=== PATIENT | female | born 1935 | race African-American/Black ===

== ENCOUNTER 2016-12-27 09:18 | Inpatient (IN) | payer MEDICAID, MEDICARE ==
[2016-12-27] VITALS (40 sets, daily range): BP systolic 85–168; BP diastolic 47–83
[~2016-12-27] VITALS: Ht 162.6 cm; Wt 84.8 kg
[~2016-12-27 09:18] MED LIST: ACET-2178 GT; AMLO10TA80 PO; ATOR10TA69 GT; CLON0.2T PO; DEXT15SY3; DIPH-909 GT; DIXL10 PO; DOXA4TAB3 GT; FOLI-43 PO; FURO20TA4 PO; HYDR100T26 GT; HYDR1AMP IVP; METH2.5T PO; METH4TAB17 GT; METH4TAB17 PO; OMEP20CA10 GT; POTA20TA82 PO
[2016-12-27] MEDS ORDERED: ALBUTEROL (0.083%) 2.5MG/3ML NEB HHN STA (10:10)
[2016-12-27] MEDS ORDERED: METHYLPREDNISOLONE SOD SUCC 125 MG/2 ML VIAL IV STA (10:10)
[2016-12-27] MEDS ORDERED: IPRATROPIUM BROMIDE (0.02%) 0.5MG/2.5ML NEB HHN STA (10:10)
[2016-12-27] MEDS ORDERED: SODIUM CHLORIDE 0.9% 1000ML BAG (SEPSIS BOLUS) IV ONE (10:15)
[2016-12-27] MEDS ORDERED: VANCOMYCIN 1 G PREMIX 200 ML IV ONE (10:15)
[2016-12-27] MEDS ORDERED: PIPERACILLIN/TAZ 3.375G PREMIX 50 ML IV ONE (10:15)
[2016-12-27] MEDS ORDERED: IPRATROPIUM/ALBUTEROL 0.5-3(2.5)MG/3ML NEB ONE (10:28)
[2016-12-27] MEDS ORDERED: SUCCINYLCHOLINE CHLORIDE 200MG/10ML VIAL IV ONE (10:30)
[2016-12-27] MEDS ORDERED: ETOMIDATE 2MG/ML 10ML VIAL IV ONE (10:30)
[2016-12-27 10:31] LABS: HEMATOCRIT. 36.2 % (36.0-48.0); MEAN CORPUSCULAR HEMOGLOBIN 30.8 pg (28.0-32.0); MEAN CORPUSCULAR VOLUME 92.9 fL (81.0-99.0); MEAN PLATELET VOLUME 7.8 fl (7.4-10.4); PLATELET 233 x1000/uL (130-400); RED CELL DISTRIBUTION WIDTH 15.1 % (11.6-14.6)
[2016-12-27 10:37] LABS: BG BASE EXCESS 1.6 mmol/L (-2.0-2.0); BG CARBOXYHEMOGLOBIN 0.4 % (0.5-1.5); BG DEOXYHEMOGLOBIN 8.4 % (0.0-5.0); BG HCO3 ACT 25.6 mmol/L (22.0-26.0); BG METHEMOGLOBIN 0.4 % (0.0-1.5); BG OXYGEN SATURATION 91.5 % (92.0-98.5); BG OXYHEMOGLOBIN 90.8 % (94.0-97.0); BG PCO2 38.1 mmHg (35.0-45.0); BG PH 7.445 (7.350-7.450); BG PO2 58.1 mmHg (75.0-100.0); BG SAMPLE SITE RIGHT RADIAL; BG TOTAL HEMOGLOBIN 12.9 g/dL (12.0-18.0); BG VENT MODE T-TUBE
[2016-12-27 10:39] LABS: INR 1.2; PROTHROMBIN TIME 12.1 sec (9.4-11.6)
[2016-12-27 10:45] LABS: CARBON DIOXIDE 28 mEq/L (21-32); CHLORIDE 99 mEq/L (98-107)
[2016-12-27 10:48] LABS: TROPONIN I < 0.02 ng/mL (0.00-0.04)
[2016-12-27] MEDS ORDERED: ACETAMINOPHEN 325MG TABLET GT ONE (11:00)
[2016-12-27 11:38] LABS: CLARITY URINE TURBID (CLEAR); COLOR URINE YELLOW (YELLOW); GLUCOSE URINE NEGATIVE (NEGATIVE); KETONES URINE NEGATIVE (NEGATIVE); LEUKOCYTE ESTERASE URINE 3+ (NEGATIVE); NITRITE URINE NEGATIVE (NEGATIVE); OCCULT BLOOD URINE 2+ (NEGATIVE); PROTEIN URINE 3+ (NEGATIVE); SPECIFIC GRAVITY URINE 1.016 (1.005-1.030); UROBILINOGEN URINE 0.2 E.U./dL (0.2-1.0)
[2016-12-27 12:58] LABS: PLATELET ESTIMATE NORMAL
[2016-12-27] MEDS ORDERED: DEXT 5%/0.9% NACL KCL 20MEQ/L 1,000 ML IV ONE (13:00)
[2016-12-27 13:31] LABS: BG BASE EXCESS -3.5 mmol/L (-2.0-2.0); BG CARBOXYHEMOGLOBIN 0.1 % (0.5-1.5); BG DEOXYHEMOGLOBIN 4.5 % (0.0-5.0); BG FRACTION INSPIRED OXYGEN 100; BG HCO3 ACT 22.1 mmol/L (22.0-26.0); BG METHEMOGLOBIN 0.4 % (0.0-1.5); BG OXYGEN SATURATION 95.5 % (92.0-98.5); BG PCO2 42.1 mmHg (35.0-45.0); BG PH 7.338 (7.350-7.450); BG PO2 81.6 mmHg (75.0-100.0); BG SAMPLE SITE RIGHT RADIAL; BG TIDAL VOLUME(mL) 550 mL; BG TOTAL HEMOGLOBIN 11.9 g/dL (12.0-18.0); BG VENT MODE VENT - A/C; BG VENT RATE 14 set
[2016-12-27] MEDS ORDERED: NOREPINEPHRINE 4 MG in DEXT 5% WATER 246 ML IV PRN (14:45)
[2016-12-27] MEDS ORDERED: DEXTROSE 50% WATER 50ML SYRINGE IV PRN ×2 (14:45)
[2016-12-27] MEDS ORDERED: ONDANSETRON HCL 4MG/2ML VIAL IV PRN (14:45)
[2016-12-27] MEDS ORDERED: CEFEPIME 1,000 MG in DEXTROSE 5% WATER 50 ML IV SCH (14:45)
[2016-12-27] MEDS: DEXT 5%/0.9% NACL KCL 20MEQ/L 1,000 ML IV SCH (15:04)
[2016-12-27] MEDS: PREDNISONE 20MG TABLET PO SCH (18:42)
[2016-12-27] MEDS: METOCLOPRAMIDE HCL 10MG/2ML VIAL IV SCH (18:42)
[2016-12-27] MEDS: BLOOD SUGAR DIAGNOSTIC STRIP TEST SCH (18:43)
[2016-12-27] MEDS: INSULIN LISPRO 100 UNITS/ML SUBCUT SCH (18:43)
[2016-12-27] MEDS: PIPERACILLIN/TAZ 3.375G PREMIX 50 ML IV SCH (20:58)
[2016-12-27] MEDS: ATORVASTATIN CALCIUM 10MG TABLET GT SCH (21:01)
[2016-12-28] VITALS (79 sets, daily range): BP systolic 99–158; BP diastolic 53–87
[2016-12-28] MEDS: BLOOD SUGAR DIAGNOSTIC STRIP TEST SCH ×4 (00:54→18:21)
[2016-12-28] MEDS: INSULIN LISPRO 100 UNITS/ML SUBCUT SCH ×4 (00:57→18:00)
[2016-12-28] MEDS: METOCLOPRAMIDE HCL 10MG/2ML VIAL IV SCH ×4 (00:57→18:23)
[2016-12-28] MEDS: PIPERACILLIN/TAZ 3.375G PREMIX 50 ML IV SCH ×3 (05:07→20:52)
[2016-12-28 06:05] LABS: HEMATOCRIT. 31.4 % (36.0-48.0); HEMOGLOBIN. 10.3 g/dL (12.0-16.0); MEAN CORPUSCULAR HEMOGLOBIN 30.7 pg (28.0-32.0); MEAN CORPUSCULAR VOLUME 93.3 fL (81.0-99.0); MEAN PLATELET VOLUME 8.8 fl (7.4-10.4); PLATELET 175 x1000/uL (130-400); RED BLOOD CELL COUNT 3.37 mill/uL (4.2-5.4); RED CELL DISTRIBUTION WIDTH 14.6 % (11.6-14.6)
[2016-12-28 07:16] LABS: CHLORIDE 105 mEq/L (98-107)
[2016-12-28 07:30] LABS: CARBON DIOXIDE 24 mEq/L (21-32); PHOSPHORUS 1.5 mg/dL (2.5-4.9)
[2016-12-28 07:58] LABS: BG BASE EXCESS -1.6 mmol/L (-2.0-2.0); BG CARBOXYHEMOGLOBIN 0.3 % (0.5-1.5); BG DEOXYHEMOGLOBIN 1.3 % (0.0-5.0); BG FRACTION INSPIRED OXYGEN 90; BG METHEMOGLOBIN 0.2 % (0.0-1.5); BG OXYGEN SATURATION 98.7 % (92.0-98.5); BG OXYHEMOGLOBIN 98.2 % (94.0-97.0); BG PCO2 28.5 mmHg (35.0-45.0); BG PH 7.485 (7.350-7.450); BG PO2 142.3 mmHg (75.0-100.0); BG SAMPLE SITE RIGHT RADIAL; BG TIDAL VOLUME(mL) 550 mL; BG TOTAL HEMOGLOBIN 10.6 g/dL (12.0-18.0); BG VENT MODE VENT - A/C; BG VENT RATE 16 set
[2016-12-28] MEDS: PREDNISONE 20MG TABLET PO SCH (08:33)
[2016-12-28] MEDS: PANTOPRAZOLE SODIUM 40 MG/VIAL IV SCH (08:33)
[2016-12-28] MEDS: DEXT 5%/0.9% NACL KCL 20MEQ/L 1,000 ML IV SCH (08:33)
[2016-12-28] MEDS: FOLIC ACID 1MG TABLET PO SCH (08:33)
[2016-12-28] MEDS: ENOXAPARIN 40MG/0.4ML SYR SUBCUT SCH (08:34)
[2016-12-28] MEDS ORDERED: POTASSIUM PHOS,M-BASIC-D-BASIC 30 MMOL in SODIUM CHLORIDE 0.9% 500 ML IV SCH (11:00)
[2016-12-28] MEDS ORDERED: VANCOMYCIN 500 MG PREMIX 100 ML IV SCH (12:30)
[2016-12-28] MEDS: VANCOMYCIN 750 MG PREMIX 150 ML IV SCH (13:28)
[2016-12-28 16:12] LABS: PLATELET ESTIMATE NORMAL
[2016-12-28] MEDS: IPRATROPIUM/ALBUTEROL 0.5-3(2.5)MG/3ML NEB HHN SCH ×3 (16:19→23:36)
[2016-12-28] MEDS: ATORVASTATIN CALCIUM 10MG TABLET GT SCH (21:52)
[2016-12-29] VITALS (43 sets, daily range): BP systolic 122–177; BP diastolic 58–86
[2016-12-29] MEDS: METOCLOPRAMIDE HCL 10MG/2ML VIAL IV SCH ×5 (00:53→23:33)
[2016-12-29] MEDS: BLOOD SUGAR DIAGNOSTIC STRIP TEST SCH ×5 (00:55→23:34)
[2016-12-29] MEDS: DEXT 5%/0.9% NACL KCL 20MEQ/L 1,000 ML IV SCH (01:37)
[2016-12-29] MEDS: IPRATROPIUM/ALBUTEROL 0.5-3(2.5)MG/3ML NEB HHN SCH ×2 (03:05→20:01)
[2016-12-29] MEDS: PIPERACILLIN/TAZ 3.375G PREMIX 50 ML IV SCH ×4 (04:58→23:33)
[2016-12-29] MEDS: INSULIN LISPRO 100 UNITS/ML SUBCUT SCH ×5 (05:41→23:34)
[2016-12-29 06:56] LABS: CARBON DIOXIDE 22 mEq/L (21-32); CHLORIDE 112 mEq/L (98-107); PHOSPHORUS 2.1 mg/dL (2.5-4.9)
[2016-12-29 07:35] LABS: HEMATOCRIT. 30.1 % (36.0-48.0); MEAN CORPUSCULAR VOLUME 93.6 fL (81.0-99.0); MEAN PLATELET VOLUME 9.1 fl (7.4-10.4); PLATELET 152 x1000/uL (130-400); RED BLOOD CELL COUNT 3.21 mill/uL (4.2-5.4)
[2016-12-29 07:43] LABS: BG BASE EXCESS -0.7 mmol/L (-2.0-2.0); BG CARBOXYHEMOGLOBIN 0.3 % (0.5-1.5); BG DEOXYHEMOGLOBIN 2.3 % (0.0-5.0); BG HCO3 ACT 22.9 mmol/L (22.0-26.0); BG METHEMOGLOBIN 0.3 % (0.0-1.5); BG OXYGEN SATURATION 97.7 % (92.0-98.5); BG OXYHEMOGLOBIN 97.1 % (94.0-97.0); BG PCO2 34.2 mmHg (35.0-45.0); BG PH 7.444 (7.350-7.450); BG PO2 101.1 mmHg (75.0-100.0); BG SAMPLE SITE RIGHT RADIAL; BG TIDAL VOLUME(mL) 550 mL; BG TOTAL HEMOGLOBIN 10.8 g/dL (12.0-18.0); BG VENT MODE VENT - A/C; BG VENT RATE 16 set
[2016-12-29] MEDS ORDERED: PREDNISONE 20MG TABLET PO SCH (09:00)
[2016-12-29] MEDS: PANTOPRAZOLE SODIUM 40 MG/VIAL IV SCH (09:47)
[2016-12-29] MEDS: FOLIC ACID 1MG TABLET PO SCH (09:48)
[2016-12-29] MEDS: VANCOMYCIN 750 MG PREMIX 150 ML IV SCH (09:49)
[2016-12-29] MEDS: ENOXAPARIN 40MG/0.4ML SYR SUBCUT SCH (09:49)
[2016-12-29] MEDS ORDERED: POTASSIUM PHOS,M-BASIC-D-BASIC 15 MMOL in DEXT 5% WATER 245 ML IV NR (11:30)
[2016-12-29 12:17] LABS: PLATELET ESTIMATE NORMAL
[2016-12-29] MEDS: ATORVASTATIN CALCIUM 10MG TABLET GT SCH (20:46)
[2016-12-29] MEDS ORDERED: AMLODIPINE 10MG TABLET GT NR (23:30)
[2016-12-30] VITALS (30 sets, daily range): BP systolic 110–171; BP diastolic 58–89
[2016-12-30] MEDS: IPRATROPIUM/ALBUTEROL 0.5-3(2.5)MG/3ML NEB HHN SCH ×6 (00:29→20:42)
[2016-12-30 05:45] LABS: BASOPHILS % 0.4 % (0.0-2.0); EOSINOPHILS % 0.1 % (0.0-5.0); HEMATOCRIT. 33.2 % (36.0-48.0); LYMPHOCYTES % 12.1 % (20.0-50.0); MEAN CORPUSCULAR HEMOGLOBIN 30.6 pg (28.0-32.0); MEAN CORPUSCULAR VOLUME 92.1 fL (81.0-99.0); MEAN PLATELET VOLUME 8.7 fl (7.4-10.4); MONOCYTES % 3.9 % (2.0-8.0); NEUTROPHILS % 83.5 % (40.0-76.0); PLATELET 158 x1000/uL (130-400); RED BLOOD CELL COUNT 3.61 mill/uL (4.2-5.4); RED CELL DISTRIBUTION WIDTH 15.2 % (11.6-14.6)
[2016-12-30] MEDS: INSULIN LISPRO 100 UNITS/ML SUBCUT SCH ×3 (06:00→17:19)
[2016-12-30] MEDS: METOCLOPRAMIDE HCL 10MG/2ML VIAL IV SCH ×3 (06:01→17:18)
[2016-12-30] MEDS: BLOOD SUGAR DIAGNOSTIC STRIP TEST SCH ×3 (06:01→17:19)
[2016-12-30] MEDS: PIPERACILLIN/TAZ 3.375G PREMIX 50 ML IV SCH ×3 (06:01→17:18)
[2016-12-30] MEDS: CLONIDINE 0.1MG TABLET GT PRN (06:17)
[2016-12-30 06:43] LABS: CARBON DIOXIDE 21 mEq/L (21-32); CHLORIDE 108 mEq/L (98-107); PHOSPHORUS 2.1 mg/dL (2.5-4.9)
[2016-12-30] MEDS: PREDNISONE 10MG TABLET PO SCH (08:52)
[2016-12-30] MEDS: FOLIC ACID 1MG TABLET PO SCH (08:52)
[2016-12-30] MEDS: AMLODIPINE 10MG TABLET GT SCH (08:52)
[2016-12-30] MEDS: PANTOPRAZOLE SODIUM 40 MG/VIAL IV SCH (08:52)
[2016-12-30] MEDS: ENOXAPARIN 40MG/0.4ML SYR SUBCUT SCH (08:53)
[2016-12-30 09:10] LABS: BG BASE EXCESS -0.2 mmol/L (-2.0-2.0); BG CARBOXYHEMOGLOBIN 0.3 % (0.5-1.5); BG DEOXYHEMOGLOBIN 4.3 % (0.0-5.0); BG FRACTION INSPIRED OXYGEN 40; BG HCO3 ACT 23.3 mmol/L (22.0-26.0); BG METHEMOGLOBIN 0.1 % (0.0-1.5); BG OXYGEN SATURATION 95.7 % (92.0-98.5); BG OXYHEMOGLOBIN 95.3 % (94.0-97.0); BG PCO2 33.9 mmHg (35.0-45.0); BG PH 7.455 (7.350-7.450); BG PO2 79.2 mmHg (75.0-100.0); BG SAMPLE SITE RIGHT RADIAL; BG TIDAL VOLUME(mL) 550 mL; BG TOTAL HEMOGLOBIN 10.3 g/dL (12.0-18.0); BG VENT MODE VENT - A/C; BG VENT RATE 12 set
[2016-12-30] MEDS ORDERED: POTASSIUM PHOS,M-BASIC-D-BASIC 10 MMOL in DEXT 5% WATER 246.6667 ML IV NR (13:00)
[2016-12-30] MEDS: ACETAMINOPHEN 650MG/20.3ML UDC GT PRN (17:18)
[2016-12-30] MEDS: ATORVASTATIN CALCIUM 10MG TABLET GT SCH (20:56)
[2016-12-31] VITALS (12 sets, daily range): BP systolic 128–179; BP diastolic 59–83
[2016-12-31] MEDS: CLONIDINE 0.1MG TABLET GT PRN ×2 (00:23→06:21)
[2016-12-31] MEDS: BLOOD SUGAR DIAGNOSTIC STRIP TEST SCH ×4 (00:24→18:00)
[2016-12-31] MEDS: METOCLOPRAMIDE HCL 10MG/2ML VIAL IV SCH ×4 (00:24→18:30)
[2016-12-31] MEDS: INSULIN LISPRO 100 UNITS/ML SUBCUT SCH ×4 (00:24→18:31)
[2016-12-31] MEDS: PIPERACILLIN/TAZ 3.375G PREMIX 50 ML IV SCH ×4 (00:24→18:29)
[2016-12-31] MEDS: IPRATROPIUM/ALBUTEROL 0.5-3(2.5)MG/3ML NEB HHN SCH ×6 (00:28→20:14)
[2016-12-31 06:48] LABS: BASOPHILS % 0.1 % (0.0-2.0); HEMATOCRIT. 28.7 % (36.0-48.0); HEMOGLOBIN. 9.5 g/dL (12.0-16.0); LYMPHOCYTES % 10.3 % (20.0-50.0); MEAN CORPUSCULAR HEMOGLOBIN 30.4 pg (28.0-32.0); MEAN CORPUSCULAR VOLUME 91.7 fL (81.0-99.0); MEAN PLATELET VOLUME 8.7 fl (7.4-10.4); MONOCYTES % 6.3 % (2.0-8.0); NEUTROPHILS % 82.3 % (40.0-76.0); PLATELET 150 x1000/uL (130-400); RED BLOOD CELL COUNT 3.13 mill/uL (4.2-5.4); RED CELL DISTRIBUTION WIDTH 15.2 % (11.6-14.6)
[2016-12-31 07:20] LABS: CARBON DIOXIDE 24 mEq/L (21-32); CHLORIDE 105 mEq/L (98-107)
[2016-12-31 07:22] LABS: PHOSPHORUS 1.9 mg/dL (2.5-4.9)
[2016-12-31] MEDS: ACETAMINOPHEN 650MG/20.3ML UDC GT PRN (07:52)
[2016-12-31] MEDS: PANTOPRAZOLE SODIUM 40 MG/VIAL IV SCH (09:10)
[2016-12-31] MEDS: FOLIC ACID 1MG TABLET PO SCH (09:10)
[2016-12-31] MEDS: PREDNISONE 10MG TABLET PO SCH (09:10)
[2016-12-31] MEDS: AMLODIPINE 10MG TABLET GT SCH (09:11)
[2016-12-31] MEDS: ENOXAPARIN 40MG/0.4ML SYR SUBCUT SCH (09:11)
[2016-12-31 12:44] LABS: BG BASE EXCESS 1.1 mmol/L (-2.0-2.0); BG CARBOXYHEMOGLOBIN 0.3 % (0.5-1.5); BG DEOXYHEMOGLOBIN 5.7 % (0.0-5.0); BG FRACTION INSPIRED OXYGEN 45; BG HCO3 ACT 24.3 mmol/L (22.0-26.0); BG METHEMOGLOBIN 0.2 % (0.0-1.5); BG OXYGEN SATURATION 94.3 % (92.0-98.5); BG OXYHEMOGLOBIN 93.8 % (94.0-97.0); BG PCO2 33.8 mmHg (35.0-45.0); BG PH 7.475 (7.350-7.450); BG PO2 68.1 mmHg (75.0-100.0); BG SAMPLE SITE RIGHT RADIAL; BG TIDAL VOLUME(mL) 550 mL; BG TOTAL HEMOGLOBIN 10.8 g/dL (12.0-18.0); BG VENT MODE VENT - A/C; BG VENT RATE 12 set
[2016-12-31] MEDS ORDERED: MAGNESIUM 2 G PREMIX 50 ML IV NR (13:00)
[2016-12-31] MEDS ORDERED: POTASSIUM PHOS,M-BASIC-D-BASIC 15 MMOL in DEXT 5% WATER 245 ML IV NR (15:00)
[2016-12-31] MEDS: ATORVASTATIN CALCIUM 20MG TABLET GT SCH (20:34)
[2017-01-01] VITALS (17 sets, daily range): BP systolic 134–176; BP diastolic 56–99
[2017-01-01] MEDS: IPRATROPIUM/ALBUTEROL 0.5-3(2.5)MG/3ML NEB HHN SCH ×6 (00:17→20:42)
[2017-01-01] MEDS: PIPERACILLIN/TAZ 3.375G PREMIX 50 ML IV SCH ×3 (00:23→13:28)
[2017-01-01] MEDS: METOCLOPRAMIDE HCL 10MG/2ML VIAL IV SCH ×5 (00:26→23:44)
[2017-01-01] MEDS: BLOOD SUGAR DIAGNOSTIC STRIP TEST SCH ×5 (00:26→23:53)
[2017-01-01] MEDS: CLONIDINE 0.1MG TABLET GT PRN (02:36)
[2017-01-01] MEDS: ACETAMINOPHEN 650MG/20.3ML UDC GT PRN (04:52)
[2017-01-01 05:20] LABS: BASOPHILS % 0.2 % (0.0-2.0); EOSINOPHILS % 2.9 % (0.0-5.0); HEMOGLOBIN. 9.3 g/dL (12.0-16.0); MEAN CORPUSCULAR HEMOGLOBIN 30.5 pg (28.0-32.0); MEAN CORPUSCULAR VOLUME 91.7 fL (81.0-99.0); MEAN PLATELET VOLUME 8.7 fl (7.4-10.4); NEUTROPHILS % 75.9 % (40.0-76.0); PLATELET 167 x1000/uL (130-400); RED BLOOD CELL COUNT 3.05 mill/uL (4.2-5.4); RED CELL DISTRIBUTION WIDTH 14.8 % (11.6-14.6)
[2017-01-01] MEDS: INSULIN LISPRO 100 UNITS/ML SUBCUT SCH ×5 (06:00→23:57)
[2017-01-01 06:57] LABS: PHOSPHORUS 2.8 mg/dL (2.5-4.9)
[2017-01-01] MEDS: ENOXAPARIN 40MG/0.4ML SYR SUBCUT SCH (08:36)
[2017-01-01] MEDS: PANTOPRAZOLE SODIUM 40 MG/VIAL IV SCH (08:36)
[2017-01-01] MEDS: AMLODIPINE 10MG TABLET GT SCH (08:37)
[2017-01-01] MEDS: PREDNISONE 10MG TABLET PO SCH (08:38)
[2017-01-01] MEDS: FOLIC ACID 1MG TABLET PO SCH (08:46)
[2017-01-01] MEDS ORDERED: POTASSIUM CHLORIDE 20MEQ/PACKET PO NR (09:00)
[2017-01-01 11:46] LABS: BG BASE EXCESS 1.8 mmol/L (-2.0-2.0); BG CARBOXYHEMOGLOBIN 0.3 % (0.5-1.5); BG DEOXYHEMOGLOBIN 5.9 % (0.0-5.0); BG FRACTION INSPIRED OXYGEN 45; BG HCO3 ACT 25.1 mmol/L (22.0-26.0); BG METHEMOGLOBIN 0.2 % (0.0-1.5); BG OXYGEN SATURATION 94.1 % (92.0-98.5); BG OXYHEMOGLOBIN 93.6 % (94.0-97.0); BG PCO2 34.1 mmHg (35.0-45.0); BG PH 7.484 (7.350-7.450); BG SAMPLE SITE RIGHT RADIAL; BG TIDAL VOLUME(mL) 550 mL; BG TOTAL HEMOGLOBIN 9.7 g/dL (12.0-18.0); BG VENT MODE VENT - A/C; BG VENT RATE 12 set
[2017-01-01] MEDS: OMEPRAZOLE 20MG CAPSULE EXTENDED RELEASE PO SCH (13:39)
[2017-01-01] MEDS: AMOXICILLIN 500 MG CAPSULE GT SCH (18:07)
[2017-01-01] MEDS: ATORVASTATIN CALCIUM 20MG TABLET GT SCH (20:43)
[2017-01-02] VITALS (17 sets, daily range): BP systolic 134–187; BP diastolic 47–88
[2017-01-02] MEDS: IPRATROPIUM/ALBUTEROL 0.5-3(2.5)MG/3ML NEB HHN SCH ×6 (00:31→20:34)
[2017-01-02] MEDS: AMOXICILLIN 500 MG CAPSULE GT SCH ×2 (01:00→07:28)
[2017-01-02] MEDS: ACETAMINOPHEN 650MG/20.3ML UDC GT PRN (01:01)
[2017-01-02] MEDS: CLONIDINE 0.1MG TABLET GT PRN (02:31)
[2017-01-02] MEDS: BLOOD SUGAR DIAGNOSTIC STRIP TEST SCH ×3 (05:46→17:51)
[2017-01-02] MEDS: METOCLOPRAMIDE HCL 10MG/2ML VIAL IV SCH ×3 (05:46→17:47)
[2017-01-02] MEDS: INSULIN LISPRO 100 UNITS/ML SUBCUT SCH ×3 (05:52→17:50)
[2017-01-02 06:19] LABS: BASOPHILS % 0.3 % (0.0-2.0); HEMATOCRIT. 28.4 % (36.0-48.0); HEMOGLOBIN. 9.4 g/dL (12.0-16.0); LYMPHOCYTES % 19.1 % (20.0-50.0); MEAN CORPUSCULAR HEMOGLOBIN 30.7 pg (28.0-32.0); MEAN CORPUSCULAR VOLUME 92.5 fL (81.0-99.0); MEAN PLATELET VOLUME 8.8 fl (7.4-10.4); MONOCYTES % 5.7 % (2.0-8.0); NEUTROPHILS % 70.9 % (40.0-76.0); PLATELET 194 x1000/uL (130-400); RED BLOOD CELL COUNT 3.06 mill/uL (4.2-5.4); RED CELL DISTRIBUTION WIDTH 14.9 % (11.6-14.6)
[2017-01-02] MEDS: OMEPRAZOLE 20MG CAPSULE EXTENDED RELEASE PO SCH (06:38)
[2017-01-02 07:08] LABS: CARBON DIOXIDE 24 mEq/L (21-32); CHLORIDE 106 mEq/L (98-107)
[2017-01-02] MEDS: FOLIC ACID 1MG TABLET PO SCH (08:31)
[2017-01-02] MEDS: ENOXAPARIN 40MG/0.4ML SYR SUBCUT SCH (08:31)
[2017-01-02] MEDS: AMLODIPINE 10MG TABLET GT SCH (08:32)
[2017-01-02] MEDS: PREDNISONE 10MG TABLET PO SCH (08:32)
[2017-01-02] MEDS: CEFTRIAXONE 1 G PREMIX 50 ML IV SCH (11:54)
[2017-01-02] MEDS: ATORVASTATIN CALCIUM 20MG TABLET GT SCH (21:02)
[2017-01-03] VITALS (12 sets, daily range): BP systolic 122–170; BP diastolic 56–75
[2017-01-03] MEDS: METOCLOPRAMIDE HCL 10MG/2ML VIAL IV SCH ×2 (00:14→05:45)
[2017-01-03] MEDS: IPRATROPIUM/ALBUTEROL 0.5-3(2.5)MG/3ML NEB HHN SCH ×6 (00:15→20:57)
[2017-01-03] MEDS: CLONIDINE 0.1MG TABLET GT PRN (00:30)
[2017-01-03] MEDS: BLOOD SUGAR DIAGNOSTIC STRIP TEST SCH ×4 (05:53→17:24)
[2017-01-03] MEDS: INSULIN LISPRO 100 UNITS/ML SUBCUT SCH ×4 (05:53→18:06)
[2017-01-03 07:00] LABS: BASOPHILS % 0.3 % (0.0-2.0); EOSINOPHILS % 3.7 % (0.0-5.0); HEMATOCRIT. 31.1 % (36.0-48.0); HEMOGLOBIN. 10.2 g/dL (12.0-16.0); LYMPHOCYTES % 18.6 % (20.0-50.0); MEAN CORPUSCULAR HEMOGLOBIN 30.7 pg (28.0-32.0); MEAN CORPUSCULAR VOLUME 93.5 fL (81.0-99.0); MEAN PLATELET VOLUME 8.9 fl (7.4-10.4); MONOCYTES % 5.3 % (2.0-8.0); NEUTROPHILS % 72.1 % (40.0-76.0); PLATELET 222 x1000/uL (130-400); RED BLOOD CELL COUNT 3.33 mill/uL (4.2-5.4); RED CELL DISTRIBUTION WIDTH 14.7 % (11.6-14.6)
[2017-01-03 08:18] LABS: CARBON DIOXIDE 24 mEq/L (21-32); CHLORIDE 104 mEq/L (98-107)
[2017-01-03] MEDS: FAMOTIDINE 20MG TABLET PO SCH (08:48)
[2017-01-03] MEDS: AMLODIPINE 10MG TABLET GT SCH (08:49)
[2017-01-03] MEDS: FOLIC ACID 1MG TABLET PO SCH (08:49)
[2017-01-03] MEDS: ENOXAPARIN 40MG/0.4ML SYR SUBCUT SCH (08:49)
[2017-01-03] MEDS: PREDNISONE 10MG TABLET PO SCH (08:49)
[2017-01-03] MEDS: CEFTRIAXONE 1 G PREMIX 50 ML IV SCH (09:50)
[2017-01-03] MEDS ORDERED: MAGNESIUM 2 G PREMIX 50 ML IV SCH (10:00)
[2017-01-03] MEDS ORDERED: VANCOMYCIN 1500MG in DEXTROSE 5% WATER 250ML IV SCH (16:00)
[2017-01-03] MEDS: CEFEPIME 1,000 MG in DEXTROSE 5% WATER 50 ML IV SCH (17:28)
[2017-01-03] MEDS: ATORVASTATIN CALCIUM 20MG TABLET GT SCH (21:02)
[2017-01-04] VITALS (14 sets, daily range): BP systolic 136–170; BP diastolic 60–85
[2017-01-04] MEDS: BLOOD SUGAR DIAGNOSTIC STRIP TEST SCH ×5 (00:05→23:55)
[2017-01-04] MEDS: CEFEPIME 1,000 MG in DEXTROSE 5% WATER 50 ML IV SCH ×2 (03:46→15:15)
[2017-01-04] MEDS: IPRATROPIUM/ALBUTEROL 0.5-3(2.5)MG/3ML NEB HHN SCH ×6 (04:42→23:57)
[2017-01-04] MEDS: INSULIN LISPRO 100 UNITS/ML SUBCUT SCH ×5 (05:49→23:55)
[2017-01-04 06:53] LABS: BASOPHILS % 0.2 % (0.0-2.0); EOSINOPHILS % 2.8 % (0.0-5.0); LYMPHOCYTES % 12.1 % (20.0-50.0); MEAN CORPUSCULAR HEMOGLOBIN 30.3 pg (28.0-32.0); MEAN CORPUSCULAR VOLUME 91.1 fL (81.0-99.0); MEAN PLATELET VOLUME 8.6 fl (7.4-10.4); MONOCYTES % 4.1 % (2.0-8.0); NEUTROPHILS % 80.8 % (40.0-76.0); PLATELET 255 x1000/uL (130-400); RED BLOOD CELL COUNT 3.29 mill/uL (4.2-5.4); RED CELL DISTRIBUTION WIDTH 14.7 % (11.6-14.6)
[2017-01-04 07:43] LABS: CARBON DIOXIDE 25 mEq/L (21-32); CHLORIDE 102 mEq/L (98-107)
[2017-01-04 07:45] LABS: CLARITY URINE CLEAR (CLEAR); COLOR URINE YELLOW (YELLOW); GLUCOSE URINE NEGATIVE (NEGATIVE); KETONES URINE NEGATIVE (NEGATIVE); LEUKOCYTE ESTERASE URINE NEGATIVE (NEGATIVE); NITRITE URINE NEGATIVE (NEGATIVE); OCCULT BLOOD URINE 1+ (NEGATIVE); PROTEIN URINE 2+ (NEGATIVE); SPECIFIC GRAVITY URINE 1.018 (1.005-1.030); UROBILINOGEN URINE 0.2 E.U./dL (0.2-1.0)
[2017-01-04 07:52] LABS: CREATINE KINASE 19 IU/L (26-192); PHOSPHORUS 3.1 mg/dL (2.5-4.9)
[2017-01-04] MEDS: FAMOTIDINE 20MG TABLET PO SCH (08:47)
[2017-01-04] MEDS: AMLODIPINE 10MG TABLET GT SCH (08:47)
[2017-01-04] MEDS: FOLIC ACID 1MG TABLET PO SCH (08:47)
[2017-01-04] MEDS: PREDNISONE 10MG TABLET PO SCH (08:47)
[2017-01-04] MEDS: ENOXAPARIN 40MG/0.4ML SYR SUBCUT SCH (08:48)
[2017-01-04] MEDS: VANCOMYCIN 1 G PREMIX 200 ML IV SCH (08:48)
[2017-01-04] MEDS: NYSTATIN POWDER 15GM TOP SCH (15:15)
[2017-01-04] MEDS ORDERED: GUAIFENESIN 200MG/10ML SUGAR FREE UDC PO PRN (15:15)
[2017-01-04] MEDS: ATORVASTATIN CALCIUM 20MG TABLET GT SCH (20:50)
[2017-01-05] VITALS (12 sets, daily range): BP systolic 124–178; BP diastolic 55–98
[2017-01-05] MEDS: CEFEPIME 1,000 MG in DEXTROSE 5% WATER 50 ML IV SCH ×2 (02:10→15:01)
[2017-01-05] MEDS: VANCOMYCIN 1 G PREMIX 200 ML IV SCH ×2 (02:43→21:04)
[2017-01-05] MEDS: IPRATROPIUM/ALBUTEROL 0.5-3(2.5)MG/3ML NEB HHN SCH ×5 (03:56→20:18)
[2017-01-05] MEDS: BLOOD SUGAR DIAGNOSTIC STRIP TEST SCH ×4 (05:21→23:47)
[2017-01-05] MEDS: INSULIN LISPRO 100 UNITS/ML SUBCUT SCH ×4 (05:21→23:47)
[2017-01-05 06:37] LABS: BASOPHILS % 0.2 % (0.0-2.0); EOSINOPHILS % 2.5 % (0.0-5.0); HEMATOCRIT. 30.3 % (36.0-48.0); LYMPHOCYTES % 14.7 % (20.0-50.0); MEAN CORPUSCULAR HEMOGLOBIN 30.2 pg (28.0-32.0); MEAN CORPUSCULAR VOLUME 91.7 fL (81.0-99.0); MEAN PLATELET VOLUME 8.4 fl (7.4-10.4); MONOCYTES % 4.5 % (2.0-8.0); NEUTROPHILS % 78.1 % (40.0-76.0); PLATELET 251 x1000/uL (130-400); RED CELL DISTRIBUTION WIDTH 14.6 % (11.6-14.6)
[2017-01-05 07:22] LABS: CARBON DIOXIDE 29 mEq/L (21-32); CHLORIDE 101 mEq/L (98-107); PHOSPHORUS 3.3 mg/dL (2.5-4.9)
[2017-01-05] MEDS: AMLODIPINE 10MG TABLET GT SCH (10:02)
[2017-01-05] MEDS: FAMOTIDINE 20MG TABLET PO SCH (10:02)
[2017-01-05] MEDS: FOLIC ACID 1MG TABLET PO SCH (10:02)
[2017-01-05] MEDS: ENOXAPARIN 40MG/0.4ML SYR SUBCUT SCH (10:02)
[2017-01-05] MEDS: ACETAMINOPHEN 650MG/20.3ML UDC GT PRN (10:03)
[2017-01-05] MEDS: PREDNISONE 10MG TABLET PO SCH (10:03)
[2017-01-05] MEDS: NYSTATIN POWDER 15GM TOP SCH (10:04)
[2017-01-05] MEDS: CLONIDINE 0.1MG TABLET GT PRN (11:50)
[2017-01-05] MEDS: HYDRALAZINE HCL 25MG TABLET GT SCH ×2 (13:43→21:03)
[2017-01-05] MEDS: ATORVASTATIN CALCIUM 20MG TABLET GT SCH (21:03)
[2017-01-06] VITALS (12 sets, daily range): BP systolic 121–157; BP diastolic 60–90
[2017-01-06] MEDS: IPRATROPIUM/ALBUTEROL 0.5-3(2.5)MG/3ML NEB HHN SCH ×6 (00:30→20:51)
[2017-01-06] MEDS: CEFEPIME 1,000 MG in DEXTROSE 5% WATER 50 ML IV SCH ×2 (03:53→15:56)
[2017-01-06] MEDS: BLOOD SUGAR DIAGNOSTIC STRIP TEST SCH ×3 (05:39→18:32)
[2017-01-06] MEDS: INSULIN LISPRO 100 UNITS/ML SUBCUT SCH ×3 (05:39→18:00)
[2017-01-06] MEDS: HYDRALAZINE HCL 25MG TABLET GT SCH ×3 (05:42→21:59)
[2017-01-06 08:27] LABS: CARBON DIOXIDE 27 mEq/L (21-32); CHLORIDE 101 mEq/L (98-107)
[2017-01-06] MEDS: NYSTATIN POWDER 15GM TOP SCH (09:00)
[2017-01-06] MEDS ORDERED: DIPHENHYDRAMINE 50MG CAPSULE GT PRN (10:00)
[2017-01-06] MEDS: PREDNISONE 10MG TABLET PO SCH (10:10)
[2017-01-06] MEDS: AMLODIPINE 10MG TABLET GT SCH (10:11)
[2017-01-06] MEDS: ACETAMINOPHEN 650MG/20.3ML UDC GT PRN (10:12)
[2017-01-06] MEDS: FOLIC ACID 1MG TABLET PO SCH (10:12)
[2017-01-06] MEDS: ENOXAPARIN 40MG/0.4ML SYR SUBCUT SCH (10:12)
[2017-01-06] MEDS: FAMOTIDINE 20MG TABLET PO SCH (10:12)
[2017-01-06] MEDS: ATORVASTATIN CALCIUM 20MG TABLET GT SCH (21:59)
[2017-01-07] VITALS (11 sets, daily range): BP systolic 128–163; BP diastolic 55–82
[2017-01-07] MEDS: CLONIDINE 0.1MG TABLET GT PRN (00:43)
[2017-01-07] MEDS: BLOOD SUGAR DIAGNOSTIC STRIP TEST SCH ×4 (00:48→17:27)
[2017-01-07] MEDS: IPRATROPIUM/ALBUTEROL 0.5-3(2.5)MG/3ML NEB HHN SCH ×6 (00:54→21:22)
[2017-01-07] MEDS: CEFEPIME 1,000 MG in DEXTROSE 5% WATER 50 ML IV SCH ×2 (03:19→14:24)
[2017-01-07] MEDS: INSULIN LISPRO 100 UNITS/ML SUBCUT SCH ×4 (06:00→17:27)
[2017-01-07] MEDS ORDERED: VANCOMYCIN 750 MG PREMIX 150 ML IV SCH (06:00)
[2017-01-07] MEDS: HYDRALAZINE HCL 25MG TABLET GT SCH ×3 (06:11→21:30)
[2017-01-07 07:37] LABS: BG BASE EXCESS 4.3 mmol/L (-2.0-2.0); BG CARBOXYHEMOGLOBIN 0.3 % (0.5-1.5); BG DEOXYHEMOGLOBIN 6.2 % (0.0-5.0); BG FRACTION INSPIRED OXYGEN 45; BG HCO3 ACT 29.1 mmol/L (22.0-26.0); BG METHEMOGLOBIN 0.3 % (0.0-1.5); BG OXYGEN SATURATION 93.8 % (92.0-98.5); BG OXYHEMOGLOBIN 93.2 % (94.0-97.0); BG PCO2 44.2 mmHg (35.0-45.0); BG PH 7.436 (7.350-7.450); BG PO2 68.9 mmHg (75.0-100.0); BG SAMPLE SITE RIGHT RADIAL; BG TIDAL VOLUME(mL) 550 mL; BG TOTAL HEMOGLOBIN 10.4 g/dL (12.0-18.0); BG VENT MODE VENT - SIMV; BG VENT RATE 6 set
[2017-01-07 08:34] LABS: BG PRESSURE SUPPORT 8
[2017-01-07] MEDS: FOLIC ACID 1MG TABLET PO SCH (08:57)
[2017-01-07] MEDS: AMLODIPINE 10MG TABLET GT SCH (08:58)
[2017-01-07] MEDS: FAMOTIDINE 20MG TABLET PO SCH (08:58)
[2017-01-07] MEDS: PREDNISONE 10MG TABLET PO SCH (08:58)
[2017-01-07] MEDS: ENOXAPARIN 40MG/0.4ML SYR SUBCUT SCH (08:59)
[2017-01-07] MEDS: NYSTATIN POWDER 15GM TOP SCH (09:47)
[2017-01-07] MEDS: ATORVASTATIN CALCIUM 20MG TABLET GT SCH (21:29)
[2017-01-08] VITALS (7 sets, daily range): BP systolic 111–153; BP diastolic 46–82
[2017-01-08] MEDS: IPRATROPIUM/ALBUTEROL 0.5-3(2.5)MG/3ML NEB HHN SCH ×4 (00:55→11:56)
[2017-01-08] MEDS: CEFEPIME 1,000 MG in DEXTROSE 5% WATER 50 ML IV SCH (02:50)
[2017-01-08] MEDS: INSULIN LISPRO 100 UNITS/ML SUBCUT SCH ×3 (06:00→13:03)
[2017-01-08 06:44] LABS: BASOPHILS % 0.5 % (0.0-2.0); EOSINOPHILS % 3.4 % (0.0-5.0); HEMOGLOBIN. 10.4 g/dL (12.0-16.0); LYMPHOCYTES % 20.5 % (20.0-50.0); MEAN CORPUSCULAR HEMOGLOBIN 30.7 pg (28.0-32.0); MEAN CORPUSCULAR VOLUME 91.3 fL (81.0-99.0); MEAN PLATELET VOLUME 8.4 fl (7.4-10.4); MONOCYTES % 8.5 % (2.0-8.0); NEUTROPHILS % 67.1 % (40.0-76.0); PLATELET 341 x1000/uL (130-400); RED BLOOD CELL COUNT 3.39 mill/uL (4.2-5.4); RED CELL DISTRIBUTION WIDTH 14.2 % (11.6-14.6)
[2017-01-08] MEDS: BLOOD SUGAR DIAGNOSTIC STRIP TEST SCH ×3 (06:55→12:22)
[2017-01-08] MEDS: HYDRALAZINE HCL 25MG TABLET GT SCH ×2 (07:12→13:57)
[2017-01-08 07:31] LABS: CARBON DIOXIDE 30 mEq/L (21-32); CHLORIDE 104 mEq/L (98-107)
[2017-01-08] MEDS ORDERED: FOLIC ACID 1MG TABLET GT SCH (09:00)
[2017-01-08] MEDS ORDERED: FAMOTIDINE 20MG TABLET GT SCH (09:00)
[2017-01-08] MEDS ORDERED: PREDNISONE 10MG TABLET GT SCH (09:00)
[2017-01-08] MEDS: ENOXAPARIN 40MG/0.4ML SYR SUBCUT SCH (09:20)
[2017-01-08] MEDS: AMLODIPINE 10MG TABLET GT SCH (09:20)
[2017-01-08] MEDS: NYSTATIN POWDER 15GM TOP SCH (09:21)
== END 2017-01-08 14:25 | DRG 870 ==
LOC: ER 09:20 → MICUSO 11:37 → EDBEDREQ 11:40 → ENRESERV 11:50 → 5EST 12-30 22:25
PROVIDERS: ADMIT Internal Medicine; ATTEND Internal Medicine
PROC: 5A1955Z Respiratory Ventilation, Greater than 96 Consecutive Hours (ICD-10-PCS; principal; 2016-12-27)
PROC: 0B21XFZ Change Tracheostomy Device in Trachea, External Approach (ICD-10-PCS; 2016-12-27)
PROC: 02HV33Z Insertion of Infusion Device into Superior Vena Cava, Percutaneous Approach (ICD-10-PCS; 2016-12-27)
PROC: B548ZZA Ultrasonography of Superior Vena Cava, Guidance (ICD-10-PCS; 2016-12-27)
DX: R65.21 Severe sepsis with septic shock (principal); J96.21 Acute and chronic respiratory failure with hypoxia; N17.0 Acute kidney failure with tubular necrosis; J69.0 Pneumonitis due to inhalation of food and vomit; A41.3 Sepsis due to Hemophilus influenzae; G93.41 Metabolic encephalopathy; Z99.11 Dependence on respirator [ventilator] status; E43 Unspecified severe protein-calorie malnutrition; J95.851 Ventilator associated pneumonia; Z93.0 Tracheostomy status; N39.0 Urinary tract infection, site not specified; F03.90 Unspecified dementia, unspecified severity, without behavioral disturbance, psychotic disturbance, mood disturbance, and anxiety; E11.9 Type 2 diabetes mellitus without complications; B96.1 Klebsiella pneumoniae [K. pneumoniae] as the cause of diseases classified elsewhere; E78.5 Hyperlipidemia, unspecified; I10 Essential (primary) hypertension; B95.5 Unspecified streptococcus as the cause of diseases classified elsewhere; E66.9 Obesity, unspecified; E78.00 Pure hypercholesterolemia, unspecified; E83.39 Other disorders of phosphorus metabolism; F17.200 Nicotine dependence, unspecified, uncomplicated; E83.42 Hypomagnesemia; R21 Rash and other nonspecific skin eruption; I25.10 Atherosclerotic heart disease of native coronary artery without angina pectoris; D64.9 Anemia, unspecified; I44.0 Atrioventricular block, first degree; J44.9 Chronic obstructive pulmonary disease, unspecified; Z88.5 Allergy status to narcotic agent; R13.10 Dysphagia, unspecified; K21.9 Gastro-esophageal reflux disease without esophagitis; M06.9 Rheumatoid arthritis, unspecified; Z79.899 Other long term (current) drug therapy; Z82.49 Family history of ischemic heart disease and other diseases of the circulatory system; Z83.3 Family history of diabetes mellitus; Z68.32 Body mass index [BMI] 32.0-32.9, adult; Z86.711 Personal history of pulmonary embolism; Z86.73 Personal history of transient ischemic attack (TIA), and cerebral infarction without residual deficits; Z87.01 Personal history of pneumonia (recurrent); Z90.49 Acquired absence of other specified parts of digestive tract; Z93.1 Gastrostomy status
CPT/HCPCS: 31603; 36415; 36569; 36600; 51702; 70450; 71010; 74000; 76937; 80048; 80053; 80076; 80202; 81001; 82375; 82550; 82805; 82962; 83605; 83690; 83735; 83880; 84100; 84443; 84484; 85025; 85610; 85730; 86850; 86900; 87040; 87070; 87077; 87086; 87493; 93005; 93970; 94002; 94003; 94640; 94664; 96374; 99291; A6261; C1725; C9113; J0330; J0692; J0696; J1650; J1815; J2543; J2765; J2930; J3370; J3475; J3490; J7030; J7040; J7050; J7060; J7512; J7611; J7620; Q0163; A4315

== ENCOUNTER 2018-10-14 18:46 | Inpatient (IN) | payer MEDICAID, MEDICARE ==
[~2018-10-14] VITALS: Ht 152.4 cm; Wt 85.7 kg
[2018-10-14] MEDS ORDERED: VANCOMYCIN 1 G PREMIX 200 ML IV ONE (19:15)
[2018-10-14] MEDS ORDERED: ACETAMINOPHEN 650MG SUPP PR ONE (19:15)
[2018-10-14] MEDS ORDERED: HYDROCORTISONE SOD SUCCINATE 100 MG/2 ML VIAL IV ONE (19:15)
[2018-10-14] MEDS ORDERED: PIPERACILLIN/TAZ 3.375G PREMIX 50 ML IV ONE (19:15)
[2018-10-14] MEDS ORDERED: SODIUM CHLORIDE 0.9% 1000ML BAG (SEPSIS BOLUS) IV ONE (19:15)
[2018-10-14 19:21] LABS: BASOPHILS % 0.4 % (0.0-2.0); HEMATOCRIT. 29.3 % (36.0-48.0); HEMOGLOBIN. 9.7 g/dL (12.0-16.0); LYMPHOCYTES % 11.9 % (20.0-50.0); MEAN CORPUSCULAR HEMOGLOBIN 30.4 pg (28.0-32.0); MEAN CORPUSCULAR VOLUME 91.7 fL (81.0-99.0); MEAN PLATELET VOLUME 7.6 fl (7.4-10.4); MONOCYTES % 6.1 % (2.0-8.0); NEUTROPHILS % 81.6 % (40.0-76.0); PLATELET 245 x1000/uL (130-400); RED BLOOD CELL COUNT 3.19 mill/uL (4.2-5.4); RED CELL DISTRIBUTION WIDTH 17.9 % (11.6-14.6)
[2018-10-14 19:24] LABS: CLARITY URINE CLEAR (CLEAR); COLOR URINE YELLOW (YELLOW); KETONES URINE NEGATIVE (NEGATIVE); LEUKOCYTE ESTERASE URINE 2+ (NEGATIVE); NITRITE URINE NEGATIVE (NEGATIVE); OCCULT BLOOD URINE 2+ (NEGATIVE); PROTEIN URINE 2+ (NEGATIVE); SPECIFIC GRAVITY URINE 1.012 (1.005-1.030); UROBILINOGEN URINE 0.2 E.U./dL (0.2-1.0)
[2018-10-14 19:26] LABS: CHLORIDE 105 mEq/L (98-107); PROTHROMBIN TIME 10.8 sec (9.6-11.0)
[2018-10-14 21:26] LABS: BG BASE EXCESS -4.6 mmol/L (-2.0-2.0); BG CARBOXYHEMOGLOBIN 0.6 % (0.5-1.5); BG DEOXYHEMOGLOBIN 1.1 % (0.0-5.0); BG FRACTION INSPIRED OXYGEN 100; BG METHEMOGLOBIN 0.2 % (0.0-1.5); BG OXYGEN SATURATION 98.9 % (92.0-98.5); BG OXYHEMOGLOBIN 98.1 % (94.0-97.0); BG PCO2 35.3 mmHg (35.0-45.0); BG PH 7.371 (7.350-7.450); BG PO2 169.8 mmHg (75.0-100.0); BG SAMPLE SITE RIGHT RADIAL; BG TIDAL VOLUME(mL) 500 mL; BG TOTAL HEMOGLOBIN 11.6 g/dL (12.0-18.0); BG VENT MODE VENT - A/C; BG VENT RATE 12 set
[2018-10-14] MEDS ORDERED: IPRATROPIUM/ALBUTEROL 0.5-3(2.5)MG/3ML NEB INH PRN (21:30)
[2018-10-14] MEDS ORDERED: VANCOMYCIN 1 G PREMIX 200 ML IV SCH (21:30)
[2018-10-14 23:00] VITALS: BP 128/69
[2018-10-15] VITALS (12 sets, daily range): BP systolic 108–143; BP diastolic 53–75
[2018-10-15] MEDS ORDERED: VANCOMYCIN 1 G PREMIX 200 ML IV SCH
[2018-10-15] MEDS ORDERED: DEXTROSE 50% WATER 50ML SYRINGE IV PRN (02:00)
[2018-10-15] MEDS: PIPERACILLIN/TAZ 3.375G PREMIX 50 ML IV SCH ×3 (03:02→23:38)
[2018-10-15 07:55] LABS: BASOPHILS % 0.3 % (0.0-2.0); EOSINOPHILS % 0.1 % (0.0-5.0); HEMATOCRIT. 26.4 % (36.0-48.0); HEMOGLOBIN. 8.7 g/dL (12.0-16.0); MEAN CORPUSCULAR HEMOGLOBIN 30.7 pg (28.0-32.0); MEAN CORPUSCULAR VOLUME 93.3 fL (81.0-99.0); MEAN PLATELET VOLUME 7.5 fl (7.4-10.4); MONOCYTES % 5.8 % (2.0-8.0); NEUTROPHILS % 76.8 % (40.0-76.0); PLATELET 199 x1000/uL (130-400); RED BLOOD CELL COUNT 2.83 mill/uL (4.2-5.4)
[2018-10-15] MEDS: BLOOD SUGAR DIAGNOSTIC STRIP TEST SCH ×4 (07:56→21:00)
[2018-10-15] MEDS: INSULIN LISPRO 100 UNITS/ML SUBCUT SCH ×4 (07:57→21:00)
[2018-10-15 08:15] LABS: CHLORIDE 111 mEq/L (98-107)
[2018-10-15] MEDS ORDERED: ENOXAPARIN 40MG/0.4ML SYR SUBCUT SCH (09:00)
[2018-10-15] MEDS: PREDNISONE 20MG TABLET PO SCH (09:22)
[2018-10-15] MEDS: ACETAMINOPHEN 325MG TABLET GT PRN (12:48)
[2018-10-15] MEDS: IPRATROPIUM/ALBUTEROL 0.5-3(2.5)MG/3ML NEB INH SCH (20:41)
[2018-10-15] MEDS: ATORVASTATIN CALCIUM 20MG TABLET GT SCH (23:38)
[2018-10-16] VITALS (12 sets, daily range): BP systolic 129–175; BP diastolic 67–94
[2018-10-16] MEDS: IPRATROPIUM/ALBUTEROL 0.5-3(2.5)MG/3ML NEB INH SCH ×7 (00:50→20:42)
[2018-10-16] MEDS: VANCOMYCIN 1 G PREMIX 200 ML IV SCH (00:59)
[2018-10-16] MEDS: PIPERACILLIN/TAZ 3.375G PREMIX 50 ML IV SCH ×3 (06:31→22:44)
[2018-10-16] MEDS: LORAZEPAM 0.5MG TABLET PO PRN (06:31)
[2018-10-16 07:24] LABS: BASOPHILS % 0.2 % (0.0-2.0); EOSINOPHILS % 0.5 % (0.0-5.0); HEMATOCRIT. 26.3 % (36.0-48.0); HEMOGLOBIN. 8.6 g/dL (12.0-16.0); LYMPHOCYTES % 18.3 % (20.0-50.0); MEAN CORPUSCULAR HEMOGLOBIN 30.6 pg (28.0-32.0); MEAN CORPUSCULAR VOLUME 93.8 fL (81.0-99.0); MEAN PLATELET VOLUME 7.8 fl (7.4-10.4); MONOCYTES % 5.7 % (2.0-8.0); NEUTROPHILS % 75.3 % (40.0-76.0); PLATELET 200 x1000/uL (130-400); RED BLOOD CELL COUNT 2.81 mill/uL (4.2-5.4); RED CELL DISTRIBUTION WIDTH 18.4 % (11.6-14.6)
[2018-10-16 07:38] LABS: CHLORIDE 111 mEq/L (98-107)
[2018-10-16] MEDS: INSULIN LISPRO 100 UNITS/ML SUBCUT SCH ×4 (08:00→21:00)
[2018-10-16] MEDS: PREDNISONE 20MG TABLET PO SCH (08:09)
[2018-10-16] MEDS: BLOOD SUGAR DIAGNOSTIC STRIP TEST SCH ×4 (08:16→21:09)
[2018-10-16 09:48] LABS: BG BASE EXCESS -1.6 mmol/L (-2.0-2.0); BG CARBOXYHEMOGLOBIN 0.5 % (0.5-1.5); BG DEOXYHEMOGLOBIN 8.3 % (0.0-5.0); BG FRACTION INSPIRED OXYGEN 75; BG HCO3 ACT 22.9 mmol/L (22.0-26.0); BG METHEMOGLOBIN 0.2 % (0.0-1.5); BG OXYGEN SATURATION 91.6 % (92.0-98.5); BG PCO2 37.4 mmHg (35.0-45.0); BG PH 7.404 (7.350-7.450); BG PO2 62.5 mmHg (75.0-100.0); BG SAMPLE SITE LEFT RADIAL; BG TIDAL VOLUME(mL) 500 mL; BG TOTAL HEMOGLOBIN 8.8 g/dL (12.0-18.0); BG VENT MODE VENT - A/C; BG VENT RATE 12 set
[2018-10-16] MEDS: AMLODIPINE 5MG TABLET GT SCH (11:02)
[2018-10-16] MEDS: HYDRALAZINE HCL 50MG TABLET GT SCH ×2 (13:00→22:43)
[2018-10-16] MEDS: ATORVASTATIN CALCIUM 20MG TABLET GT SCH (22:43)
[2018-10-17] VITALS (12 sets, daily range): BP systolic 122–167; BP diastolic 63–120
[2018-10-17] MEDS: IPRATROPIUM/ALBUTEROL 0.5-3(2.5)MG/3ML NEB INH SCH ×9 (00:06→20:11)
[2018-10-17] MEDS: VANCOMYCIN 1 G PREMIX 200 ML IV SCH (00:12)
[2018-10-17] MEDS: PIPERACILLIN/TAZ 3.375G PREMIX 50 ML IV SCH ×3 (04:10→20:51)
[2018-10-17] MEDS: ACETAMINOPHEN 325MG TABLET GT PRN (04:14)
[2018-10-17 06:34] LABS: BASOPHILS % 0.2 % (0.0-2.0); EOSINOPHILS % 0.6 % (0.0-5.0); HEMATOCRIT. 26.5 % (36.0-48.0); HEMOGLOBIN. 8.7 g/dL (12.0-16.0); LYMPHOCYTES % 17.7 % (20.0-50.0); MEAN CORPUSCULAR HEMOGLOBIN 30.5 pg (28.0-32.0); MEAN CORPUSCULAR VOLUME 92.3 fL (81.0-99.0); MEAN PLATELET VOLUME 7.7 fl (7.4-10.4); MONOCYTES % 6.9 % (2.0-8.0); NEUTROPHILS % 74.6 % (40.0-76.0); PLATELET 196 x1000/uL (130-400); RED BLOOD CELL COUNT 2.87 mill/uL (4.2-5.4); RED CELL DISTRIBUTION WIDTH 18.4 % (11.6-14.6)
[2018-10-17 06:41] LABS: CHLORIDE 107 mEq/L (98-107)
[2018-10-17 06:48] LABS: TOTAL IRON BINDING CAPACITY 263 ug/dL (250-450)
[2018-10-17] MEDS: HYDRALAZINE HCL 50MG TABLET GT SCH ×3 (07:02→21:03)
[2018-10-17] MEDS: LORAZEPAM 0.5MG TABLET PO PRN (07:02)
[2018-10-17] MEDS: BLOOD SUGAR DIAGNOSTIC STRIP TEST SCH ×4 (07:30→20:57)
[2018-10-17] MEDS: INSULIN LISPRO 100 UNITS/ML SUBCUT SCH ×4 (08:00→20:58)
[2018-10-17 08:09] LABS: BG BASE EXCESS 0.4 mmol/L (-2.0-2.0); BG CARBOXYHEMOGLOBIN 0.6 % (0.5-1.5); BG DEOXYHEMOGLOBIN 7.5 % (0.0-5.0); BG FRACTION INSPIRED OXYGEN 75; BG HCO3 ACT 25.3 mmol/L (22.0-26.0); BG METHEMOGLOBIN 0.7 % (0.0-1.5); BG OXYGEN SATURATION 92.4 % (92.0-98.5); BG OXYHEMOGLOBIN 91.2 % (94.0-97.0); BG PCO2 41.8 mmHg (35.0-45.0); BG SAMPLE SITE RIGHT RADIAL; BG TIDAL VOLUME(mL) 500 mL; BG TOTAL HEMOGLOBIN 9.5 g/dL (12.0-18.0); BG VENT MODE VENT - A/C; BG VENT RATE 12 set
[2018-10-17] MEDS: AMLODIPINE 5MG TABLET GT SCH (08:46)
[2018-10-17] MEDS: PREDNISONE 20MG TABLET PO SCH (08:46)
[2018-10-17] MEDS ORDERED: FUROSEMIDE 40MG/4ML VIAL IVP SCH (09:30)
[2018-10-17 12:14] LABS: BG BASE EXCESS -0.2 mmol/L (-2.0-2.0); BG CARBOXYHEMOGLOBIN 0.5 % (0.5-1.5); BG FRACTION INSPIRED OXYGEN 60; BG HCO3 ACT 23.4 mmol/L (22.0-26.0); BG METHEMOGLOBIN 0.2 % (0.0-1.5); BG OXYGEN SATURATION 86.9 % (92.0-98.5); BG OXYHEMOGLOBIN 86.3 % (94.0-97.0); BG PCO2 34.1 mmHg (35.0-45.0); BG PH 7.455 (7.350-7.450); BG SAMPLE SITE RIGHT RADIAL; BG TIDAL VOLUME(mL) 550 mL; BG TOTAL HEMOGLOBIN 9.4 g/dL (12.0-18.0); BG VENT MODE VENT - A/C; BG VENT RATE 12 set
[2018-10-17] MEDS: FERROUS SULFATE 325MG TABLET PO SCH (18:29)
[2018-10-17] MEDS: ATORVASTATIN CALCIUM 20MG TABLET GT SCH (20:51)
[2018-10-18] VITALS (12 sets, daily range): BP systolic 120–158; BP diastolic 58–89
[2018-10-18] MEDS: VANCOMYCIN 1 G PREMIX 200 ML IV SCH (00:04)
[2018-10-18] MEDS: IPRATROPIUM/ALBUTEROL 0.5-3(2.5)MG/3ML NEB INH SCH ×5 (04:19→20:09)
[2018-10-18] MEDS: PIPERACILLIN/TAZ 3.375G PREMIX 50 ML IV SCH (05:50)
[2018-10-18] MEDS: HYDRALAZINE HCL 50MG TABLET GT SCH ×3 (05:51→21:51)
[2018-10-18 07:01] LABS: BASOPHILS % 0.2 % (0.0-2.0); EOSINOPHILS % 1.1 % (0.0-5.0); HEMATOCRIT. 26.5 % (36.0-48.0); HEMOGLOBIN. 8.9 g/dL (12.0-16.0); LYMPHOCYTES % 21.4 % (20.0-50.0); MEAN CORPUSCULAR HEMOGLOBIN 30.7 pg (28.0-32.0); MEAN CORPUSCULAR VOLUME 91.9 fL (81.0-99.0); MEAN PLATELET VOLUME 8.1 fl (7.4-10.4); MONOCYTES % 6.3 % (2.0-8.0); PLATELET 205 x1000/uL (130-400); RED BLOOD CELL COUNT 2.88 mill/uL (4.2-5.4); RED CELL DISTRIBUTION WIDTH 17.6 % (11.6-14.6)
[2018-10-18 07:19] LABS: CHLORIDE 104 mEq/L (98-107)
[2018-10-18] MEDS: BLOOD SUGAR DIAGNOSTIC STRIP TEST SCH ×4 (07:30→21:00)
[2018-10-18] MEDS: INSULIN LISPRO 100 UNITS/ML SUBCUT SCH ×4 (08:00→21:00)
[2018-10-18 08:30] LABS: BG BASE EXCESS 2.7 mmol/L (-2.0-2.0); BG CARBOXYHEMOGLOBIN 0.4 % (0.5-1.5); BG DEOXYHEMOGLOBIN 6.6 % (0.0-5.0); BG FRACTION INSPIRED OXYGEN 80; BG HCO3 ACT 26.5 mmol/L (22.0-26.0); BG METHEMOGLOBIN 0.3 % (0.0-1.5); BG OXYGEN SATURATION 93.4 % (92.0-98.5); BG OXYHEMOGLOBIN 92.7 % (94.0-97.0); BG PCO2 37.4 mmHg (35.0-45.0); BG PH 7.468 (7.350-7.450); BG PO2 67.7 mmHg (75.0-100.0); BG SAMPLE SITE LEFT RADIAL; BG TIDAL VOLUME(mL) 550 mL; BG TOTAL HEMOGLOBIN 9.2 g/dL (12.0-18.0); BG VENT MODE VENT - A/C; BG VENT RATE 12 set
[2018-10-18] MEDS: FERROUS SULFATE 325MG TABLET PO SCH ×3 (09:35→18:00)
[2018-10-18] MEDS: AMLODIPINE 5MG TABLET GT SCH (09:35)
[2018-10-18] MEDS: PREDNISONE 20MG TABLET PO SCH (09:36)
[2018-10-18 12:42] LABS: BG BASE EXCESS 1.2 mmol/L (-2.0-2.0); BG DEOXYHEMOGLOBIN 4.3 % (0.0-5.0); BG FRACTION INSPIRED OXYGEN 70; BG HCO3 ACT 24.2 mmol/L (22.0-26.0); BG METHEMOGLOBIN 0.2 % (0.0-1.5); BG OXYGEN SATURATION 95.7 % (92.0-98.5); BG OXYHEMOGLOBIN 95.5 % (94.0-97.0); BG PCO2 31.8 mmHg (35.0-45.0); BG PH 7.499 (7.350-7.450); BG PO2 79.7 mmHg (75.0-100.0); BG SAMPLE SITE LEFT RADIAL; BG TIDAL VOLUME(mL) 500 mL; BG TOTAL HEMOGLOBIN 8.5 g/dL (12.0-18.0); BG VENT MODE VENT - A/C; BG VENT RATE 12 set
[2018-10-18] MEDS ORDERED: *TOBRAMYCIN PER PHARMACY XX SCH (15:15)
[2018-10-18] MEDS ORDERED: TOBRAMYCIN SULFATE 160 MG in SODIUM CHLORIDE 0.9% 100 ML IV SCH (17:00)
[2018-10-18] MEDS: ATORVASTATIN CALCIUM 20MG TABLET GT SCH (21:51)
[2018-10-18] MEDS: LORAZEPAM 0.5MG TABLET PO PRN (23:05)
[2018-10-18] MEDS: ONDANSETRON HCL 4MG/2ML INJ IV PRN (23:05)
[2018-10-19] VITALS (12 sets, daily range): BP systolic 97–141; BP diastolic 51–83
[2018-10-19] MEDS: IPRATROPIUM/ALBUTEROL 0.5-3(2.5)MG/3ML NEB INH SCH ×6 (00:05→20:50)
[2018-10-19] MEDS: HYDRALAZINE HCL 50MG TABLET GT SCH ×3 (06:38→21:31)
[2018-10-19] MEDS: ONDANSETRON HCL 4MG/2ML INJ IV PRN ×2 (06:39→21:31)
[2018-10-19] MEDS: INSULIN LISPRO 100 UNITS/ML SUBCUT SCH ×4 (08:00→21:00)
[2018-10-19] MEDS: BLOOD SUGAR DIAGNOSTIC STRIP TEST SCH ×4 (08:27→21:00)
[2018-10-19] MEDS: PREDNISONE 20MG TABLET PO SCH (09:11)
[2018-10-19] MEDS: FERROUS SULFATE 325MG TABLET PO SCH ×3 (09:11→18:04)
[2018-10-19] MEDS: AMLODIPINE 5MG TABLET GT SCH (09:12)
[2018-10-19] MEDS: TOBRAMYCIN SULFATE 120 MG in SODIUM CHLORIDE 0.9% 100 ML IV SCH (18:12)
[2018-10-19] MEDS: ATORVASTATIN CALCIUM 20MG TABLET GT SCH (21:30)
[2018-10-19] MEDS: ACETAMINOPHEN 325MG TABLET GT PRN (21:31)
[2018-10-20] VITALS (12 sets, daily range): BP systolic 102–165; BP diastolic 57–101
[2018-10-20] MEDS: IPRATROPIUM/ALBUTEROL 0.5-3(2.5)MG/3ML NEB INH SCH ×5 (01:00→20:13)
[2018-10-20] MEDS: HYDRALAZINE HCL 50MG TABLET GT SCH ×3 (05:54→21:02)
[2018-10-20] MEDS: BLOOD SUGAR DIAGNOSTIC STRIP TEST SCH ×4 (07:30→21:19)
[2018-10-20] MEDS: INSULIN LISPRO 100 UNITS/ML SUBCUT SCH ×4 (08:00→21:00)
[2018-10-20] MEDS: FERROUS SULFATE 325MG TABLET PO SCH ×3 (08:54→17:02)
[2018-10-20] MEDS: PREDNISONE 20MG TABLET PO SCH (08:54)
[2018-10-20] MEDS: AMLODIPINE 5MG TABLET GT SCH (08:54)
[2018-10-20 08:55] LABS: BASOPHILS % 0.3 % (0.0-2.0); CHLORIDE 106 mEq/L (98-107); EOSINOPHILS % 2.2 % (0.0-5.0); HEMATOCRIT. 26.4 % (36.0-48.0); HEMOGLOBIN. 8.6 g/dL (12.0-16.0); LYMPHOCYTES % 20.6 % (20.0-50.0); MEAN CORPUSCULAR HEMOGLOBIN 30.4 pg (28.0-32.0); MEAN PLATELET VOLUME 8.1 fl (7.4-10.4); MONOCYTES % 5.7 % (2.0-8.0); NEUTROPHILS % 71.2 % (40.0-76.0); PLATELET 199 x1000/uL (130-400); RED BLOOD CELL COUNT 2.84 mill/uL (4.2-5.4)
[2018-10-20 09:42] LABS: BG BASE EXCESS -0.8 mmol/L (-2.0-2.0); BG CARBOXYHEMOGLOBIN 0.2 % (0.5-1.5); BG DEOXYHEMOGLOBIN 5.4 % (0.0-5.0); BG FRACTION INSPIRED OXYGEN 70; BG HCO3 ACT 22.5 mmol/L (22.0-26.0); BG METHEMOGLOBIN 0.3 % (0.0-1.5); BG OXYGEN SATURATION 94.6 % (92.0-98.5); BG OXYHEMOGLOBIN 94.1 % (94.0-97.0); BG PCO2 31.9 mmHg (35.0-45.0); BG PH 7.467 (7.350-7.450); BG PO2 78.7 mmHg (75.0-100.0); BG SAMPLE SITE LEFT RADIAL; BG TIDAL VOLUME(mL) 550 mL; BG TOTAL HEMOGLOBIN 8.9 g/dL (12.0-18.0); BG VENT MODE VENT - A/C; BG VENT RATE 12 set
[2018-10-20] MEDS: SODIUM CHLORIDE 0.45% 1,000 ML IV SCH (14:30)
[2018-10-20] MEDS: TOBRAMYCIN SULFATE 120 MG in SODIUM CHLORIDE 0.9% 100 ML IV SCH (17:03)
[2018-10-20] MEDS: ATORVASTATIN CALCIUM 20MG TABLET GT SCH (21:01)
[2018-10-21] VITALS (11 sets, daily range): BP systolic 127–176; BP diastolic 66–96
[2018-10-21] MEDS: IPRATROPIUM/ALBUTEROL 0.5-3(2.5)MG/3ML NEB INH SCH ×6 (00:10→21:17)
[2018-10-21] MEDS: HYDRALAZINE HCL 50MG TABLET GT SCH ×3 (05:26→22:16)
[2018-10-21] MEDS: SODIUM CHLORIDE 0.45% 1,000 ML IV SCH ×2 (05:26→22:16)
[2018-10-21 07:00] LABS: BASOPHILS % 0.1 % (0.0-2.0); EOSINOPHILS % 1.7 % (0.0-5.0); HEMATOCRIT. 26.4 % (36.0-48.0); HEMOGLOBIN. 8.7 g/dL (12.0-16.0); LYMPHOCYTES % 26.7 % (20.0-50.0); MEAN CORPUSCULAR HEMOGLOBIN 30.5 pg (28.0-32.0); MEAN CORPUSCULAR VOLUME 92.5 fL (81.0-99.0); MEAN PLATELET VOLUME 8.3 fl (7.4-10.4); MONOCYTES % 6.1 % (2.0-8.0); NEUTROPHILS % 65.4 % (40.0-76.0); PLATELET 203 x1000/uL (130-400); RED BLOOD CELL COUNT 2.85 mill/uL (4.2-5.4); RED CELL DISTRIBUTION WIDTH 18.3 % (11.6-14.6)
[2018-10-21] MEDS: INSULIN LISPRO 100 UNITS/ML SUBCUT SCH ×4 (08:00→21:00)
[2018-10-21] MEDS: BLOOD SUGAR DIAGNOSTIC STRIP TEST SCH ×4 (08:07→21:00)
[2018-10-21] MEDS: PREDNISONE 20MG TABLET PO SCH (08:27)
[2018-10-21] MEDS: AMLODIPINE 5MG TABLET GT SCH (08:27)
[2018-10-21] MEDS: FERROUS SULFATE 325MG TABLET PO SCH ×3 (08:28→17:55)
[2018-10-21 12:46] LABS: BG BASE EXCESS 0.7 mmol/L (-2.0-2.0); BG CARBOXYHEMOGLOBIN 0.3 % (0.5-1.5); BG DEOXYHEMOGLOBIN 9.4 % (0.0-5.0); BG FRACTION INSPIRED OXYGEN 65; BG HCO3 ACT 23.5 mmol/L (22.0-26.0); BG METHEMOGLOBIN 0.3 % (0.0-1.5); BG OXYGEN SATURATION 90.5 % (92.0-98.5); BG PCO2 30.9 mmHg (35.0-45.0); BG PH 7.499 (7.350-7.450); BG PO2 58.5 mmHg (75.0-100.0); BG SAMPLE SITE RIGHT RADIAL; BG TIDAL VOLUME(mL) 550 mL; BG TOTAL HEMOGLOBIN 9.1 g/dL (12.0-18.0); BG VENT MODE VENT - A/C; BG VENT RATE 12 set
[2018-10-21] MEDS: TOBRAMYCIN SULFATE 120 MG in SODIUM CHLORIDE 0.9% 100 ML IV SCH (17:55)
[2018-10-21] MEDS: DIPHENHYDRAMINE 12.5MG/5ML UDC GT PRN (19:08)
[2018-10-21] MEDS: ATORVASTATIN CALCIUM 20MG TABLET GT SCH (22:15)
[2018-10-22] VITALS (31 sets, daily range): BP systolic 111–213; BP diastolic 54–111
[2018-10-22] MEDS: IPRATROPIUM/ALBUTEROL 0.5-3(2.5)MG/3ML NEB INH SCH ×6 (00:49→20:38)
[2018-10-22] MEDS ORDERED: CLONIDINE 0.1MG TABLET GT PRN (04:30)
[2018-10-22] MEDS: HYDRALAZINE HCL 50MG TABLET GT SCH (05:33)
[2018-10-22] MEDS: INSULIN LISPRO 100 UNITS/ML SUBCUT SCH ×4 (08:00→21:00)
[2018-10-22 08:05] LABS: CHLORIDE 104 mEq/L (98-107)
[2018-10-22 08:12] LABS: TOBRAMYCIN RANDOM 2.3 ucg/mL
[2018-10-22 08:24] LABS: MEAN CORPUSCULAR HEMOGLOBIN 29.9 pg (28.0-32.0); MEAN CORPUSCULAR VOLUME 92.1 fL (81.0-99.0); MEAN PLATELET VOLUME 8.5 fl (7.4-10.4); PLATELET 224 x1000/uL (130-400); RED BLOOD CELL COUNT 3.35 mill/uL (4.2-5.4); RED CELL DISTRIBUTION WIDTH 18.1 % (11.6-14.6)
[2018-10-22] MEDS: BLOOD SUGAR DIAGNOSTIC STRIP TEST SCH ×4 (08:27→21:14)
[2018-10-22] MEDS: FERROUS SULFATE 325MG TABLET PO SCH ×3 (08:27→18:24)
[2018-10-22] MEDS: AMLODIPINE 5MG TABLET GT SCH (08:27)
[2018-10-22] MEDS: PREDNISONE 20MG TABLET PO SCH (08:27)
[2018-10-22 08:34] LABS: BASOPHILS % 0.1 % (0.0-2.0); EOSINOPHILS % 1.5 % (0.0-5.0); HEMATOCRIT. 30.8 % (36.0-48.0); LYMPHOCYTES % 19.6 % (20.0-50.0); MONOCYTES % 5.5 % (2.0-8.0); NEUTROPHILS % 73.3 % (40.0-76.0)
[2018-10-22] MEDS: PREDNISONE 10MG TABLET PO SCH (09:00)
[2018-10-22] MEDS ORDERED: PREDNISONE 20MG TABLET PO SCH (09:00)
[2018-10-22] MEDS ORDERED: FUROSEMIDE 40MG/4ML VIAL IVP PRN (09:15)
[2018-10-22 09:49] LABS: BG BASE EXCESS 0.8 mmol/L (-2.0-2.0); BG CARBOXYHEMOGLOBIN 0.3 % (0.5-1.5); BG DEOXYHEMOGLOBIN 9.4 % (0.0-5.0); BG HCO3 ACT 24.2 mmol/L (22.0-26.0); BG METHEMOGLOBIN 0.5 % (0.0-1.5); BG OXYGEN SATURATION 90.5 % (92.0-98.5); BG OXYHEMOGLOBIN 89.8 % (94.0-97.0); BG PCO2 33.8 mmHg (35.0-45.0); BG PH 7.472 (7.350-7.450); BG PO2 61.7 mmHg (75.0-100.0); BG SAMPLE SITE RIGHT RADIAL; BG TIDAL VOLUME(mL) 550 mL; BG TOTAL HEMOGLOBIN 9.3 g/dL (12.0-18.0); BG VENT MODE VENT - A/C; BG VENT RATE 12 set
[2018-10-22] MEDS: DIPHENHYDRAMINE 12.5MG/5ML UDC GT PRN ×2 (10:13→18:24)
[2018-10-22] MEDS: ACETAMINOPHEN 325MG TABLET GT PRN ×2 (10:14→18:24)
[2018-10-22] MEDS ORDERED: TADA20TA31 PO (13:26)
[2018-10-22] MEDS ORDERED: MIRT15TA6 PO (13:26)
[2018-10-22] MEDS ORDERED: DOCU250C69 PO (13:26)
[2018-10-22] MEDS ORDERED: PALI3TAB5 PO (13:26)
[2018-10-22] MEDS ORDERED: D-ME473S8 PO (13:26)
[2018-10-22] MEDS ORDERED: ACET-2128 MT (13:26)
[2018-10-22] MEDS ORDERED: FERR325T6 PO (13:26)
[2018-10-22] MEDS ORDERED: FOLI-43 PO (13:26)
[2018-10-22] MEDS: HYDRALAZINE HCL 100MG TABLET GT SCH ×2 (14:00→21:16)
[2018-10-22] MEDS ORDERED: HYDRALAZINE HCL 50MG TABLET GT SCH (14:00)
[2018-10-22] MEDS: SODIUM CHLORIDE 0.45% 1,000 ML IV SCH (16:32)
[2018-10-22] MEDS: TOBRAMYCIN SULFATE 120 MG in SODIUM CHLORIDE 0.9% 100 ML IV SCH (18:25)
[2018-10-22] MEDS: ATORVASTATIN CALCIUM 20MG TABLET GT SCH (21:15)
[2018-10-23] VITALS (13 sets, daily range): BP systolic 102–170; BP diastolic 55–114
[2018-10-23] MEDS: IPRATROPIUM/ALBUTEROL 0.5-3(2.5)MG/3ML NEB INH SCH ×7 (01:00→20:56)
[2018-10-23] MEDS: HYDRALAZINE HCL 100MG TABLET GT SCH (06:00)
[2018-10-23] MEDS: BLOOD SUGAR DIAGNOSTIC STRIP TEST SCH ×4 (07:30→21:40)
[2018-10-23] MEDS: INSULIN LISPRO 100 UNITS/ML SUBCUT SCH ×4 (08:00→21:00)
[2018-10-23] MEDS: DIPHENHYDRAMINE 12.5MG/5ML UDC GT PRN (08:46)
[2018-10-23] MEDS: ACETAMINOPHEN 325MG TABLET GT PRN (08:47)
[2018-10-23] MEDS: AMLODIPINE 5MG TABLET GT SCH ×2 (08:48→20:45)
[2018-10-23] MEDS: PREDNISONE 10MG TABLET PO SCH (08:48)
[2018-10-23] MEDS: FERROUS SULFATE 325MG TABLET PO SCH ×3 (08:48→18:31)
[2018-10-23] MEDS: SODIUM CHLORIDE 0.45% 1,000 ML IV SCH (08:49)
[2018-10-23 10:56] LABS: BG BASE EXCESS -1.2 mmol/L (-2.0-2.0); BG CARBOXYHEMOGLOBIN 0.5 % (0.5-1.5); BG DEOXYHEMOGLOBIN 7.7 % (0.0-5.0); BG FRACTION INSPIRED OXYGEN 65; BG HCO3 ACT 22.3 mmol/L (22.0-26.0); BG METHEMOGLOBIN 0.2 % (0.0-1.5); BG OXYGEN SATURATION 92.2 % (92.0-98.5); BG OXYHEMOGLOBIN 91.6 % (94.0-97.0); BG PCO2 32.3 mmHg (35.0-45.0); BG PH 7.457 (7.350-7.450); BG PO2 66.6 mmHg (75.0-100.0); BG SAMPLE SITE RIGHT RADIAL; BG TIDAL VOLUME(mL) 550 mL; BG TOTAL HEMOGLOBIN 8.5 g/dL (12.0-18.0); BG VENT MODE VENT - A/C; BG VENT RATE 12 set
[2018-10-23] MEDS: FUROSEMIDE 20MG/2ML VIAL IVP SCH (11:59)
[2018-10-23] MEDS: HYDRALAZINE HCL 50MG TABLET GT SCH ×2 (13:22→22:00)
[2018-10-23] MEDS: TOBRAMYCIN SULFATE 120 MG in SODIUM CHLORIDE 0.9% 100 ML IV SCH (18:31)
[2018-10-23] MEDS: ATORVASTATIN CALCIUM 20MG TABLET GT SCH (20:44)
[2018-10-24] VITALS (12 sets, daily range): BP systolic 87–142; BP diastolic 48–104
[2018-10-24] MEDS: IPRATROPIUM/ALBUTEROL 0.5-3(2.5)MG/3ML NEB INH SCH ×3 (00:23→20:00)
[2018-10-24] MEDS: HYDRALAZINE HCL 50MG TABLET GT SCH (06:41)
[2018-10-24] MEDS: SODIUM CHLORIDE 0.45% 1,000 ML IV SCH ×2 (06:43→18:34)
[2018-10-24 07:04] LABS: BASOPHILS % 0.2 % (0.0-2.0); EOSINOPHILS % 0.7 % (0.0-5.0); HEMATOCRIT. 27.6 % (36.0-48.0); HEMOGLOBIN. 8.9 g/dL (12.0-16.0); MEAN CORPUSCULAR HEMOGLOBIN 29.8 pg (28.0-32.0); MEAN CORPUSCULAR VOLUME 92.4 fL (81.0-99.0); MEAN PLATELET VOLUME 8.4 fl (7.4-10.4); MONOCYTES % 4.3 % (2.0-8.0); NEUTROPHILS % 81.8 % (40.0-76.0); PLATELET 224 x1000/uL (130-400); RED BLOOD CELL COUNT 2.99 mill/uL (4.2-5.4); RED CELL DISTRIBUTION WIDTH 18.4 % (11.6-14.6)
[2018-10-24] MEDS: BLOOD SUGAR DIAGNOSTIC STRIP TEST SCH ×4 (07:30→22:26)
[2018-10-24 07:45] LABS: BG BASE EXCESS 3.5 mmol/L (-2.0-2.0); BG CARBOXYHEMOGLOBIN 0.4 % (0.5-1.5); BG DEOXYHEMOGLOBIN 7.8 % (0.0-5.0); BG HCO3 ACT 26.3 mmol/L (22.0-26.0); BG METHEMOGLOBIN 0.2 % (0.0-1.5); BG OXYGEN SATURATION 92.2 % (92.0-98.5); BG OXYHEMOGLOBIN 91.6 % (94.0-97.0); BG PCO2 32.6 mmHg (35.0-45.0); BG PH 7.524 (7.350-7.450); BG PO2 63.3 mmHg (75.0-100.0); BG SAMPLE SITE RIGHT RADIAL; BG TIDAL VOLUME(mL) 550 mL; BG TOTAL HEMOGLOBIN 8.7 g/dL (12.0-18.0); BG VENT MODE VENT - A/C; BG VENT RATE 12 set
[2018-10-24] MEDS: FERROUS SULFATE 325MG TABLET PO SCH ×2 (08:40→13:29)
[2018-10-24] MEDS: AMLODIPINE 5MG TABLET GT SCH ×2 (08:41→21:41)
[2018-10-24] MEDS: PREDNISONE 10MG TABLET PO SCH (08:41)
[2018-10-24] MEDS: LOSARTAN POTASSIUM 25 MG TABLET PO SCH (08:41)
[2018-10-24] MEDS: INSULIN LISPRO 100 UNITS/ML SUBCUT SCH ×4 (08:42→22:26)
[2018-10-24] MEDS: FUROSEMIDE 20MG/2ML VIAL IVP SCH (08:43)
[2018-10-24] MEDS: HYDRALAZINE HCL 25MG TABLET GT SCH ×2 (14:00→21:41)
[2018-10-24] MEDS: FERROUS SULFATE 300MG/5ML UDC GT SCH (18:33)
[2018-10-24] MEDS: TOBRAMYCIN SULFATE 120 MG in SODIUM CHLORIDE 0.9% 100 ML IV SCH (18:34)
[2018-10-24] MEDS: CEFTAZIDIME PENTAHYDRATE 2 G in DEXT 5% WATER 100 ML IV SCH (18:34)
[2018-10-24] MEDS: ATORVASTATIN CALCIUM 20MG TABLET GT SCH (21:29)
[2018-10-25] VITALS (12 sets, daily range): BP systolic 88–147; BP diastolic 37–96
[2018-10-25] MEDS: IPRATROPIUM/ALBUTEROL 0.5-3(2.5)MG/3ML NEB INH SCH ×5 (00:10→23:36)
[2018-10-25] MEDS: CEFTAZIDIME PENTAHYDRATE 2 G in DEXT 5% WATER 100 ML IV SCH ×3 (02:57→17:04)
[2018-10-25] MEDS: HYDRALAZINE HCL 25MG TABLET GT SCH (06:00)
[2018-10-25] MEDS: BLOOD SUGAR DIAGNOSTIC STRIP TEST SCH ×4 (06:05→21:22)
[2018-10-25 07:32] LABS: BASOPHILS % 0.3 % (0.0-2.0); EOSINOPHILS % 0.8 % (0.0-5.0); HEMATOCRIT. 28.6 % (36.0-48.0); HEMOGLOBIN. 9.3 g/dL (12.0-16.0); MEAN CORPUSCULAR HEMOGLOBIN 30.2 pg (28.0-32.0); MEAN PLATELET VOLUME 8.3 fl (7.4-10.4); MONOCYTES % 4.2 % (2.0-8.0); NEUTROPHILS % 78.7 % (40.0-76.0); PLATELET 233 x1000/uL (130-400); RED BLOOD CELL COUNT 3.07 mill/uL (4.2-5.4); RED CELL DISTRIBUTION WIDTH 18.5 % (11.6-14.6)
[2018-10-25] MEDS: INSULIN LISPRO 100 UNITS/ML SUBCUT SCH ×4 (08:00→21:00)
[2018-10-25] MEDS: LOSARTAN POTASSIUM 25 MG TABLET PO SCH (09:00)
[2018-10-25] MEDS: FERROUS SULFATE 300MG/5ML UDC GT SCH ×3 (09:16→17:04)
[2018-10-25] MEDS: AMLODIPINE 2.5MG TABLET GT SCH ×2 (09:17→21:21)
[2018-10-25] MEDS: PREDNISONE 10MG TABLET PO SCH (09:17)
[2018-10-25] MEDS: ACETAMINOPHEN 650MG/20.3ML UDC GT PRN ×2 (11:56→17:05)
[2018-10-25] MEDS: LORAZEPAM 2MG/ML CPJ IV PRN (11:56)
[2018-10-25] MEDS: SODIUM CHLORIDE 0.45% 1,000 ML IV SCH (13:48)
[2018-10-25] MEDS: TOBRAMYCIN SULFATE 120 MG in SODIUM CHLORIDE 0.9% 100 ML IV SCH (17:04)
[2018-10-25] MEDS: ATORVASTATIN CALCIUM 20MG TABLET GT SCH (21:21)
[2018-10-25] MEDS: POLYETHYLENE GLYCOL 3350 (17GM) 1 DOSE PACK PO SCH (21:22)
[2018-10-26] VITALS (12 sets, daily range): BP systolic 86–151; BP diastolic 41–89
[2018-10-26] MEDS: CEFTAZIDIME PENTAHYDRATE 2 G in DEXT 5% WATER 100 ML IV SCH ×3 (02:31→17:25)
[2018-10-26] MEDS: SODIUM CHLORIDE 0.45% 1,000 ML IV SCH ×2 (03:50→22:13)
[2018-10-26] MEDS: IPRATROPIUM/ALBUTEROL 0.5-3(2.5)MG/3ML NEB INH SCH ×2 (03:59→20:21)
[2018-10-26 06:06] LABS: BASOPHILS % 0.1 % (0.0-2.0); EOSINOPHILS % 0.9 % (0.0-5.0); HEMATOCRIT. 24.8 % (36.0-48.0); LYMPHOCYTES % 17.9 % (20.0-50.0); MEAN CORPUSCULAR HEMOGLOBIN 30.4 pg (28.0-32.0); MEAN PLATELET VOLUME 8.6 fl (7.4-10.4); MONOCYTES % 4.9 % (2.0-8.0); NEUTROPHILS % 76.2 % (40.0-76.0); PLATELET 230 x1000/uL (130-400); RED BLOOD CELL COUNT 2.64 mill/uL (4.2-5.4); RED CELL DISTRIBUTION WIDTH 18.4 % (11.6-14.6)
[2018-10-26 06:20] LABS: CHLORIDE 101 mEq/L (98-107)
[2018-10-26 06:36] LABS: PHOSPHORUS 4.1 mg/dL (2.5-4.9)
[2018-10-26 06:39] LABS: TOBRAMYCIN RANDOM 5.7 ucg/mL
[2018-10-26] MEDS: BLOOD SUGAR DIAGNOSTIC STRIP TEST SCH ×4 (07:30→21:00)
[2018-10-26] MEDS: INSULIN LISPRO 100 UNITS/ML SUBCUT SCH ×4 (08:00→21:00)
[2018-10-26] MEDS: AMLODIPINE 2.5MG TABLET GT SCH ×2 (08:31→22:12)
[2018-10-26] MEDS: LOSARTAN POTASSIUM 25 MG TABLET PO SCH (08:31)
[2018-10-26] MEDS: FERROUS SULFATE 300MG/5ML UDC GT SCH ×3 (08:32→17:25)
[2018-10-26] MEDS: PREDNISONE 10MG TABLET PO SCH (08:32)
[2018-10-26 09:49] LABS: BG BASE EXCESS -2.3 mmol/L (-2.0-2.0); BG CARBOXYHEMOGLOBIN 0.5 % (0.5-1.5); BG DEOXYHEMOGLOBIN 3.3 % (0.0-5.0); BG FRACTION INSPIRED OXYGEN 80; BG HCO3 ACT 21.8 mmol/L (22.0-26.0); BG METHEMOGLOBIN 0.2 % (0.0-1.5); BG OXYGEN SATURATION 96.7 % (92.0-98.5); BG PH 7.424 (7.350-7.450); BG PO2 96.2 mmHg (75.0-100.0); BG SAMPLE SITE RIGHT RADIAL; BG TIDAL VOLUME(mL) 550 mL; BG TOTAL HEMOGLOBIN 8.4 g/dL (12.0-18.0); BG VENT MODE VENT - A/C; BG VENT RATE 12 set
[2018-10-26] MEDS: LORAZEPAM 2MG/ML CPJ IV PRN (14:58)
[2018-10-26] MEDS: ACETAMINOPHEN 650MG/20.3ML UDC GT PRN (18:56)
[2018-10-26] MEDS: ATORVASTATIN CALCIUM 20MG TABLET GT SCH (22:12)
[2018-10-26] MEDS: POLYETHYLENE GLYCOL 3350 (17GM) 1 DOSE PACK PO SCH (22:14)
[2018-10-27] VITALS (11 sets, daily range): BP systolic 108–155; BP diastolic 52–82
[2018-10-27] MEDS: IPRATROPIUM/ALBUTEROL 0.5-3(2.5)MG/3ML NEB INH SCH ×6 (00:43→20:27)
[2018-10-27] MEDS: CEFTAZIDIME PENTAHYDRATE 2 G in DEXT 5% WATER 100 ML IV SCH ×2 (03:01→10:00)
[2018-10-27 06:25] LABS: BASOPHILS % 0.2 % (0.0-2.0); EOSINOPHILS % 1.3 % (0.0-5.0); HEMATOCRIT. 26.3 % (36.0-48.0); HEMOGLOBIN. 8.7 g/dL (12.0-16.0); LYMPHOCYTES % 17.2 % (20.0-50.0); MEAN CORPUSCULAR HEMOGLOBIN 30.5 pg (28.0-32.0); MEAN CORPUSCULAR VOLUME 92.4 fL (81.0-99.0); MEAN PLATELET VOLUME 8.6 fl (7.4-10.4); MONOCYTES % 5.8 % (2.0-8.0); NEUTROPHILS % 75.5 % (40.0-76.0); PLATELET 242 x1000/uL (130-400); RED BLOOD CELL COUNT 2.85 mill/uL (4.2-5.4); RED CELL DISTRIBUTION WIDTH 18.7 % (11.6-14.6)
[2018-10-27 07:12] LABS: CHLORIDE 100 mEq/L (98-107)
[2018-10-27] MEDS: BLOOD SUGAR DIAGNOSTIC STRIP TEST SCH ×4 (07:30→21:00)
[2018-10-27 07:31] LABS: PHOSPHORUS 3.5 mg/dL (2.5-4.9); TOBRAMYCIN RANDOM 2.4 ucg/mL
[2018-10-27] MEDS: INSULIN LISPRO 100 UNITS/ML SUBCUT SCH ×4 (08:00→21:00)
[2018-10-27] MEDS: FERROUS SULFATE 300MG/5ML UDC GT SCH ×3 (12:53→18:00)
[2018-10-27] MEDS: AMLODIPINE 2.5MG TABLET GT SCH ×2 (12:53→21:00)
[2018-10-27] MEDS: PREDNISONE 10MG TABLET PO SCH (12:53)
[2018-10-27] MEDS ORDERED: CEFTAZIDIME PENTAHYDRATE 2 G in DEXT 5% WATER 100 ML IV SCH (13:00)
[2018-10-27] MEDS ORDERED: LORAZEPAM 2MG/ML CPJ IV PRN (17:30)
[2018-10-27] MEDS ORDERED: TOBRAMYCIN SULFATE 140 MG in SODIUM CHLORIDE 0.9% 100 ML IV SCH (20:00)
[2018-10-27] MEDS: POLYETHYLENE GLYCOL 3350 (17GM) 1 DOSE PACK PO SCH (22:55)
[2018-10-27] MEDS: ATORVASTATIN CALCIUM 20MG TABLET GT SCH (22:55)
[2018-10-28] VITALS (12 sets, daily range): BP systolic 94–146; BP diastolic 56–85
[2018-10-28] MEDS: IPRATROPIUM/ALBUTEROL 0.5-3(2.5)MG/3ML NEB INH SCH ×6 (00:20→20:25)
[2018-10-28] MEDS: CEFTAZIDIME PENTAHYDRATE 2 G in DEXT 5% WATER 100 ML IV SCH (03:00)
[2018-10-28 05:27] LABS: BASOPHILS % 0.2 % (0.0-2.0); EOSINOPHILS % 0.7 % (0.0-5.0); HEMATOCRIT. 25.8 % (36.0-48.0); HEMOGLOBIN. 8.2 g/dL (12.0-16.0); LYMPHOCYTES % 17.8 % (20.0-50.0); MEAN CORPUSCULAR VOLUME 94.3 fL (81.0-99.0); MEAN PLATELET VOLUME 8.8 fl (7.4-10.4); MONOCYTES % 5.3 % (2.0-8.0); PLATELET 251 x1000/uL (130-400); RED BLOOD CELL COUNT 2.74 mill/uL (4.2-5.4); RED CELL DISTRIBUTION WIDTH 19.1 % (11.6-14.6)
[2018-10-28 06:38] LABS: PHOSPHORUS 3.7 mg/dL (2.5-4.9)
[2018-10-28] MEDS: INSULIN LISPRO 100 UNITS/ML SUBCUT SCH ×4 (08:00→21:00)
[2018-10-28] MEDS: FERROUS SULFATE 300MG/5ML UDC GT SCH ×3 (08:18→17:40)
[2018-10-28] MEDS: PREDNISONE 10MG TABLET PO SCH (08:18)
[2018-10-28] MEDS: BLOOD SUGAR DIAGNOSTIC STRIP TEST SCH ×4 (08:19→21:00)
[2018-10-28 08:25] LABS: BG BASE EXCESS -3.1 mmol/L (-2.0-2.0); BG CARBOXYHEMOGLOBIN 0.2 % (0.5-1.5); BG DEOXYHEMOGLOBIN 7.7 % (0.0-5.0); BG FRACTION INSPIRED OXYGEN 60; BG HCO3 ACT 20.3 mmol/L (22.0-26.0); BG METHEMOGLOBIN 0.1 % (0.0-1.5); BG OXYGEN SATURATION 92.3 % (92.0-98.5); BG PCO2 29.4 mmHg (35.0-45.0); BG PH 7.456 (7.350-7.450); BG PO2 70.5 mmHg (75.0-100.0); BG SAMPLE SITE RIGHT RADIAL; BG TIDAL VOLUME(mL) 550 mL; BG TOTAL HEMOGLOBIN 8.3 g/dL (12.0-18.0); BG VENT MODE VENT - A/C; BG VENT RATE 12 set
[2018-10-28] MEDS: AMLODIPINE 2.5MG TABLET GT SCH ×2 (08:42→23:33)
[2018-10-28] MEDS: SILDENAFIL CITRATE 20MG TABLET PO SCH ×2 (14:05→23:32)
[2018-10-28] MEDS: POLYETHYLENE GLYCOL 3350 (17GM) 1 DOSE PACK PO SCH (23:32)
[2018-10-28] MEDS: ATORVASTATIN CALCIUM 20MG TABLET GT SCH (23:32)
[2018-10-29] VITALS (11 sets, daily range): BP systolic 127–158; BP diastolic 60–94
[2018-10-29] MEDS: IPRATROPIUM/ALBUTEROL 0.5-3(2.5)MG/3ML NEB INH SCH ×6 (00:04→20:25)
[2018-10-29 05:38] LABS: BASOPHILS % 0.2 % (0.0-2.0); EOSINOPHILS % 1.2 % (0.0-5.0); HEMATOCRIT. 26.5 % (36.0-48.0); HEMOGLOBIN. 8.5 g/dL (12.0-16.0); MEAN CORPUSCULAR HEMOGLOBIN 30.2 pg (28.0-32.0); MEAN CORPUSCULAR VOLUME 93.7 fL (81.0-99.0); MEAN PLATELET VOLUME 8.9 fl (7.4-10.4); MONOCYTES % 4.9 % (2.0-8.0); NEUTROPHILS % 82.7 % (40.0-76.0); PLATELET 259 x1000/uL (130-400); RED BLOOD CELL COUNT 2.82 mill/uL (4.2-5.4); RED CELL DISTRIBUTION WIDTH 18.6 % (11.6-14.6)
[2018-10-29] MEDS: SILDENAFIL CITRATE 20MG TABLET PO SCH ×2 (06:38→14:06)
[2018-10-29] MEDS: CEFTAZIDIME PENTAHYDRATE 2 G in DEXT 5% WATER 100 ML IV SCH (06:38)
[2018-10-29 06:45] LABS: TOBRAMYCIN RANDOM 2.4 ucg/mL
[2018-10-29] MEDS: FERROUS SULFATE 300MG/5ML UDC GT SCH ×3 (07:55→17:40)
[2018-10-29] MEDS: BLOOD SUGAR DIAGNOSTIC STRIP TEST SCH ×4 (08:00→21:00)
[2018-10-29] MEDS: INSULIN LISPRO 100 UNITS/ML SUBCUT SCH ×4 (08:00→21:00)
[2018-10-29] MEDS: PREDNISONE 10MG TABLET PO SCH (09:17)
[2018-10-29] MEDS: AMLODIPINE 2.5MG TABLET GT SCH (09:17)
[2018-10-30] VITALS (12 sets, daily range): BP systolic 104–151; BP diastolic 32–75
[2018-10-30] MEDS: ATORVASTATIN CALCIUM 20MG TABLET GT SCH ×2 (00:15→21:17)
[2018-10-30] MEDS: AMLODIPINE 2.5MG TABLET GT SCH ×3 (00:15→21:00)
[2018-10-30] MEDS: SILDENAFIL CITRATE 20MG TABLET PO SCH ×4 (00:16→21:17)
[2018-10-30] MEDS: POLYETHYLENE GLYCOL 3350 (17GM) 1 DOSE PACK PO SCH ×2 (00:17→21:17)
[2018-10-30] MEDS: IPRATROPIUM/ALBUTEROL 0.5-3(2.5)MG/3ML NEB INH SCH ×6 (00:27→20:00)
[2018-10-30] MEDS: CEFTAZIDIME PENTAHYDRATE 2 G in DEXT 5% WATER 100 ML IV SCH (03:59)
[2018-10-30 05:59] LABS: BASOPHILS % 0.3 % (0.0-2.0); EOSINOPHILS % 1.7 % (0.0-5.0); HEMATOCRIT. 26.5 % (36.0-48.0); HEMOGLOBIN. 8.7 g/dL (12.0-16.0); LYMPHOCYTES % 14.1 % (20.0-50.0); MEAN CORPUSCULAR VOLUME 94.2 fL (81.0-99.0); MONOCYTES % 5.7 % (2.0-8.0); NEUTROPHILS % 78.2 % (40.0-76.0); PLATELET 253 x1000/uL (130-400); RED BLOOD CELL COUNT 2.81 mill/uL (4.2-5.4)
[2018-10-30] MEDS: INSULIN LISPRO 100 UNITS/ML SUBCUT SCH ×4 (08:00→21:00)
[2018-10-30] MEDS: BLOOD SUGAR DIAGNOSTIC STRIP TEST SCH ×4 (08:26→21:34)
[2018-10-30] MEDS: PREDNISONE 10MG TABLET PO SCH (08:27)
[2018-10-30] MEDS: ACETAMINOPHEN 650MG/20.3ML UDC GT PRN ×2 (08:29→17:29)
[2018-10-30] MEDS: FERROUS SULFATE 300MG/5ML UDC GT SCH ×3 (08:29→17:29)
[2018-10-30] MEDS: DIPHENHYDRAMINE 12.5MG/5ML UDC GT PRN ×2 (08:29→17:29)
[2018-10-30] MEDS ORDERED: TOBRAMYCIN SULFATE 160 MG in SODIUM CHLORIDE 0.9% 100 ML IV SCH (09:00)
[2018-10-30 11:21] LABS: BG CARBOXYHEMOGLOBIN 0.2 % (0.5-1.5); BG DEOXYHEMOGLOBIN 10.3 % (0.0-5.0); BG FRACTION INSPIRED OXYGEN 60; BG HCO3 ACT 22.6 mmol/L (22.0-26.0); BG METHEMOGLOBIN 0.1 % (0.0-1.5); BG OXYGEN SATURATION 89.7 % (92.0-98.5); BG OXYHEMOGLOBIN 89.4 % (94.0-97.0); BG PH 7.454 (7.350-7.450); BG PO2 57.7 mmHg (75.0-100.0); BG SAMPLE SITE LEFT RADIAL; BG TIDAL VOLUME(mL) 550 mL; BG TOTAL HEMOGLOBIN 8.7 g/dL (12.0-18.0); BG VENT MODE VENT - A/C; BG VENT RATE 12 set
[2018-10-31] VITALS (11 sets, daily range): BP systolic 130–165; BP diastolic 53–97
[2018-10-31] MEDS: IPRATROPIUM/ALBUTEROL 0.5-3(2.5)MG/3ML NEB INH SCH ×6 (00:31→20:24)
[2018-10-31] MEDS: CEFTAZIDIME PENTAHYDRATE 2 G in DEXT 5% WATER 100 ML IV SCH (03:52)
[2018-10-31] MEDS: SILDENAFIL CITRATE 20MG TABLET PO SCH ×3 (05:44→21:17)
[2018-10-31] MEDS: BLOOD SUGAR DIAGNOSTIC STRIP TEST SCH ×4 (06:00→23:20)
[2018-10-31] MEDS: INSULIN LISPRO 100 UNITS/ML SUBCUT SCH ×3 (06:00→18:05)
[2018-10-31 06:20] LABS: BASOPHILS % 0.4 % (0.0-2.0); EOSINOPHILS % 2.2 % (0.0-5.0); HEMATOCRIT. 26.9 % (36.0-48.0); HEMOGLOBIN. 8.7 g/dL (12.0-16.0); LYMPHOCYTES % 16.7 % (20.0-50.0); MEAN CORPUSCULAR HEMOGLOBIN 30.9 pg (28.0-32.0); MONOCYTES % 6.7 % (2.0-8.0); PLATELET 246 x1000/uL (130-400); RED CELL DISTRIBUTION WIDTH 19.5 % (11.6-14.6)
[2018-10-31 06:33] LABS: PHOSPHORUS 2.9 mg/dL (2.5-4.9)
[2018-10-31 07:33] LABS: BG CARBOXYHEMOGLOBIN 0.4 % (0.5-1.5); BG DEOXYHEMOGLOBIN 14.9 % (0.0-5.0); BG FRACTION INSPIRED OXYGEN 65; BG HCO3 ACT 21.1 mmol/L (22.0-26.0); BG METHEMOGLOBIN 0.5 % (0.0-1.5); BG OXYHEMOGLOBIN 84.2 % (94.0-97.0); BG PCO2 30.2 mmHg (35.0-45.0); BG PH 7.463 (7.350-7.450); BG PO2 53.4 mmHg (75.0-100.0); BG SAMPLE SITE RIGHT RADIAL; BG TIDAL VOLUME(mL) 550 mL; BG TOTAL HEMOGLOBIN 9.5 g/dL (12.0-18.0); BG VENT MODE VENT - A/C; BG VENT RATE 12 set
[2018-10-31] MEDS: PREDNISONE 10MG TABLET PO SCH (08:29)
[2018-10-31] MEDS: FERROUS SULFATE 300MG/5ML UDC GT SCH ×3 (08:30→17:19)
[2018-10-31] MEDS: AMLODIPINE 2.5MG TABLET GT SCH (08:30)
[2018-10-31] MEDS: DIPHENHYDRAMINE 12.5MG/5ML UDC GT PRN (08:30)
[2018-10-31] MEDS: ACETAMINOPHEN 650MG/20.3ML UDC GT PRN ×2 (08:31→16:26)
[2018-10-31] MEDS ORDERED: BLOOD SUGAR DIAGNOSTIC STRIP TEST SCH (09:00)
[2018-10-31] MEDS ORDERED: INSULIN LISPRO 100 UNITS/ML SUBCUT SCH (09:00)
[2018-10-31] MEDS: METHYLPREDNISOLONE SOD SUCC 40 MG/ML VIAL IV SCH ×2 (10:27→17:19)
[2018-10-31] MEDS: LORAZEPAM 2MG/ML CPJ IV PRN ×2 (14:44→22:44)
[2018-10-31] MEDS ORDERED: HYDROCODONE/ACETAMINOPHEN 5/325MG TABLET PO PRN (14:45)
[2018-10-31] MEDS ORDERED: FUROSEMIDE 40MG/4ML VIAL IVP NR (14:45)
[2018-10-31] MEDS ORDERED: MORPHINE SULFATE 2 MG/ML CPJ (NOT FOR IM USE) IV NR (17:06)
[2018-10-31 18:12] LABS: BG BASE EXCESS 0.1 mmol/L (-2.0-2.0); BG CARBOXYHEMOGLOBIN 0.5 % (0.5-1.5); BG DEOXYHEMOGLOBIN 13.4 % (0.0-5.0); BG FRACTION INSPIRED OXYGEN 100; BG HCO3 ACT 23.5 mmol/L (22.0-26.0); BG METHEMOGLOBIN 0.1 % (0.0-1.5); BG OXYGEN SATURATION 86.5 % (92.0-98.5); BG PH 7.458 (7.350-7.450); BG PO2 52.6 mmHg (75.0-100.0); BG SAMPLE SITE RIGHT RADIAL; BG TIDAL VOLUME(mL) 550 mL; BG TOTAL HEMOGLOBIN 10.9 g/dL (12.0-18.0); BG VENT MODE VENT - A/C; BG VENT RATE 12 set
[2018-10-31] MEDS ORDERED: MORPHINE SULFATE 2 MG/ML CPJ (NOT FOR IM USE) IV PRN (19:15)
[2018-10-31] MEDS: ATORVASTATIN CALCIUM 20MG TABLET GT SCH (20:38)
[2018-10-31] MEDS: POLYETHYLENE GLYCOL 3350 (17GM) 1 DOSE PACK PO SCH (20:39)
[2018-10-31] MEDS: AMLODIPINE 5MG TABLET GT SCH (20:39)
[2018-11-01] VITALS (12 sets, daily range): BP systolic 102–159; BP diastolic 55–90
[2018-11-01] MEDS: IPRATROPIUM/ALBUTEROL 0.5-3(2.5)MG/3ML NEB INH SCH ×6 (00:16→21:11)
[2018-11-01] MEDS: INSULIN LISPRO 100 UNITS/ML SUBCUT SCH ×4 (01:08→17:55)
[2018-11-01] MEDS: METHYLPREDNISOLONE SOD SUCC 40 MG/ML VIAL IV SCH ×3 (01:16→17:25)
[2018-11-01] MEDS: CEFTAZIDIME PENTAHYDRATE 2 G in DEXT 5% WATER 100 ML IV SCH (02:41)
[2018-11-01] MEDS: LORAZEPAM 2MG/ML CPJ IV PRN (03:13)
[2018-11-01] MEDS: SILDENAFIL CITRATE 20MG TABLET PO SCH ×3 (05:16→21:45)
[2018-11-01] MEDS: BLOOD SUGAR DIAGNOSTIC STRIP TEST SCH ×3 (05:16→17:26)
[2018-11-01 07:27] LABS: BG BASE EXCESS -2.6 mmol/L (-2.0-2.0); BG CARBOXYHEMOGLOBIN 0.2 % (0.5-1.5); BG DEOXYHEMOGLOBIN 2.2 % (0.0-5.0); BG FRACTION INSPIRED OXYGEN 100; BG HCO3 ACT 21.6 mmol/L (22.0-26.0); BG METHEMOGLOBIN 0.2 % (0.0-1.5); BG OXYGEN SATURATION 97.8 % (92.0-98.5); BG OXYHEMOGLOBIN 97.4 % (94.0-97.0); BG PCO2 34.6 mmHg (35.0-45.0); BG PH 7.413 (7.350-7.450); BG PO2 111.8 mmHg (75.0-100.0); BG SAMPLE SITE RIGHT RADIAL; BG TIDAL VOLUME(mL) 550 mL; BG TOTAL HEMOGLOBIN 8.8 g/dL (12.0-18.0); BG VENT MODE VENT - A/C; BG VENT RATE 12 set
[2018-11-01 07:42] LABS: HEMATOCRIT. 28.8 % (36.0-48.0); HEMOGLOBIN. 9.1 g/dL (12.0-16.0); MEAN CORPUSCULAR HEMOGLOBIN 30.1 pg (28.0-32.0); MEAN CORPUSCULAR VOLUME 95.2 fL (81.0-99.0); MEAN PLATELET VOLUME 8.8 fl (7.4-10.4); PLATELET 248 x1000/uL (130-400); RED BLOOD CELL COUNT 3.02 mill/uL (4.2-5.4); RED CELL DISTRIBUTION WIDTH 20.4 % (11.6-14.6)
[2018-11-01 07:44] LABS: CHLORIDE 107 mEq/L (98-107)
[2018-11-01 07:57] LABS: TOBRAMYCIN RANDOM 1.1 ucg/mL
[2018-11-01] MEDS: FERROUS SULFATE 300MG/5ML UDC GT SCH ×3 (08:28→17:25)
[2018-11-01] MEDS: AMLODIPINE 5MG TABLET GT SCH ×2 (09:00→20:50)
[2018-11-01] MEDS ORDERED: TOBRAMYCIN SULFATE 140 MG in SODIUM CHLORIDE 0.9% 100 ML IV SCH (10:00)
[2018-11-01 10:01] LABS: INR 1.2; PARTIAL THROMBOPLASTIN TIME 25.7 sec (23.4-31.0); PROTHROMBIN TIME 11.8 sec (9.6-11.0)
[2018-11-01] MEDS: POLYETHYLENE GLYCOL 3350 (17GM) 1 DOSE PACK PO SCH (20:49)
[2018-11-01] MEDS: ATORVASTATIN CALCIUM 20MG TABLET GT SCH (20:49)
[2018-11-01 21:57] LABS: NUCLEATED RED BLOOD CELLS 1 /100 WBC; PLATELET ESTIMATE NORMAL
[2018-11-02] VITALS (12 sets, daily range): BP systolic 95–148; BP diastolic 64–83
[2018-11-02] MEDS: IPRATROPIUM/ALBUTEROL 0.5-3(2.5)MG/3ML NEB INH SCH ×6 (00:39→20:04)
[2018-11-02] MEDS: INSULIN LISPRO 100 UNITS/ML SUBCUT SCH ×4 (00:44→18:25)
[2018-11-02] MEDS: METHYLPREDNISOLONE SOD SUCC 40 MG/ML VIAL IV SCH ×3 (01:03→17:51)
[2018-11-02] MEDS: LORAZEPAM 2MG/ML CPJ IV PRN (01:12)
[2018-11-02] MEDS: CEFTAZIDIME PENTAHYDRATE 2 G in DEXT 5% WATER 100 ML IV SCH (03:47)
[2018-11-02] MEDS: SILDENAFIL CITRATE 20MG TABLET PO SCH ×3 (05:13→21:06)
[2018-11-02] MEDS: BLOOD SUGAR DIAGNOSTIC STRIP TEST SCH ×4 (05:13→18:10)
[2018-11-02 08:55] LABS: HEMATOCRIT. 29.6 % (36.0-48.0); HEMOGLOBIN. 9.2 g/dL (12.0-16.0); MEAN CORPUSCULAR HEMOGLOBIN 29.9 pg (28.0-32.0); MEAN CORPUSCULAR VOLUME 96.2 fL (81.0-99.0); PLATELET 257 x1000/uL (130-400); RED BLOOD CELL COUNT 3.08 mill/uL (4.2-5.4); RED CELL DISTRIBUTION WIDTH 20.2 % (11.6-14.6)
[2018-11-02] MEDS: FERROUS SULFATE 300MG/5ML UDC GT SCH ×3 (08:55→17:51)
[2018-11-02] MEDS: AMLODIPINE 5MG TABLET GT SCH ×3 (08:56→21:54)
[2018-11-02 10:47] LABS: PLATELET ESTIMATE NORMAL
[2018-11-02 18:11] LABS: BG BASE EXCESS 0.5 mmol/L (-2.0-2.0); BG CARBOXYHEMOGLOBIN 0.2 % (0.5-1.5); BG DEOXYHEMOGLOBIN 5.3 % (0.0-5.0); BG FRACTION INSPIRED OXYGEN 80; BG HCO3 ACT 24.8 mmol/L (22.0-26.0); BG METHEMOGLOBIN 0.3 % (0.0-1.5); BG OXYGEN SATURATION 94.7 % (92.0-98.5); BG OXYHEMOGLOBIN 94.2 % (94.0-97.0); BG PCO2 38.7 mmHg (35.0-45.0); BG PH 7.425 (7.350-7.450); BG PO2 77.1 mmHg (75.0-100.0); BG SAMPLE SITE RIGHT RADIAL; BG TIDAL VOLUME(mL) 550 mL; BG TOTAL HEMOGLOBIN 9.3 g/dL (12.0-18.0); BG VENT MODE VENT - A/C; BG VENT RATE 12 set
[2018-11-02] MEDS: ATORVASTATIN CALCIUM 20MG TABLET GT SCH (21:06)
[2018-11-02] MEDS: POLYETHYLENE GLYCOL 3350 (17GM) 1 DOSE PACK PO SCH (21:06)
[2018-11-03] VITALS (17 sets, daily range): BP systolic 133–169; BP diastolic 66–98
[2018-11-03] MEDS: BLOOD SUGAR DIAGNOSTIC STRIP TEST SCH ×4 (00:09→18:14)
[2018-11-03] MEDS: INSULIN LISPRO 100 UNITS/ML SUBCUT SCH ×4 (00:09→18:00)
[2018-11-03] MEDS: IPRATROPIUM/ALBUTEROL 0.5-3(2.5)MG/3ML NEB INH SCH ×6 (00:58→20:17)
[2018-11-03] MEDS: CEFTAZIDIME PENTAHYDRATE 2 G in DEXT 5% WATER 100 ML IV SCH (02:08)
[2018-11-03] MEDS: METHYLPREDNISOLONE SOD SUCC 40 MG/ML VIAL IV SCH ×3 (02:09→21:03)
[2018-11-03] MEDS: SILDENAFIL CITRATE 20MG TABLET PO SCH ×3 (05:17→21:02)
[2018-11-03 07:57] LABS: HEMATOCRIT. 29.9 % (36.0-48.0); HEMOGLOBIN. 9.3 g/dL (12.0-16.0); MEAN CORPUSCULAR HEMOGLOBIN 29.8 pg (28.0-32.0); MEAN CORPUSCULAR VOLUME 96.3 fL (81.0-99.0); PLATELET 235 x1000/uL (130-400); RED BLOOD CELL COUNT 3.11 mill/uL (4.2-5.4)
[2018-11-03 08:56] LABS: PHOSPHORUS 2.8 mg/dL (2.5-4.9)
[2018-11-03 09:01] LABS: TOBRAMYCIN RANDOM 0.7 ucg/mL
[2018-11-03] MEDS: AMLODIPINE 5MG TABLET GT SCH ×2 (09:48→21:02)
[2018-11-03] MEDS: FERROUS SULFATE 300MG/5ML UDC GT SCH ×3 (09:49→18:15)
[2018-11-03 09:53] LABS: PLATELET ESTIMATE NORMAL
[2018-11-03] MEDS ORDERED: TOBRAMYCIN SULFATE 160 MG in SODIUM CHLORIDE 0.9% 100 ML IV SCH (11:00)
[2018-11-03] MEDS: FUROSEMIDE 40MG/4ML VIAL IVP SCH (14:42)
[2018-11-03 15:03] LABS: BG CARBOXYHEMOGLOBIN 0.3 % (0.5-1.5); BG DEOXYHEMOGLOBIN 6.6 % (0.0-5.0); BG FRACTION INSPIRED OXYGEN 75; BG HCO3 ACT 21.3 mmol/L (22.0-26.0); BG METHEMOGLOBIN 0.2 % (0.0-1.5); BG OXYGEN SATURATION 93.4 % (92.0-98.5); BG OXYHEMOGLOBIN 92.9 % (94.0-97.0); BG PH 7.454 (7.350-7.450); BG PO2 71.3 mmHg (75.0-100.0); BG SAMPLE SITE RIGHT RADIAL; BG TIDAL VOLUME(mL) 550 mL; BG VENT MODE VENT - A/C; BG VENT RATE 12 set
[2018-11-03] MEDS: ATORVASTATIN CALCIUM 20MG TABLET GT SCH (21:02)
[2018-11-03] MEDS: POLYETHYLENE GLYCOL 3350 (17GM) 1 DOSE PACK PO SCH (21:03)
[2018-11-03] MEDS: LORAZEPAM 2MG/ML CPJ IV PRN (23:36)
[2018-11-04] VITALS (13 sets, daily range): BP systolic 126–162; BP diastolic 69–87
[2018-11-04] MEDS: IPRATROPIUM/ALBUTEROL 0.5-3(2.5)MG/3ML NEB INH SCH ×6 (00:17→20:43)
[2018-11-04] MEDS: INSULIN LISPRO 100 UNITS/ML SUBCUT SCH ×4 (00:23→17:38)
[2018-11-04] MEDS: BLOOD SUGAR DIAGNOSTIC STRIP TEST SCH ×4 (00:23→17:42)
[2018-11-04] MEDS: SILDENAFIL CITRATE 20MG TABLET PO SCH ×3 (05:48→21:28)
[2018-11-04 06:25] LABS: HEMATOCRIT. 30.6 % (36.0-48.0); HEMOGLOBIN. 9.7 g/dL (12.0-16.0); MEAN CORPUSCULAR VOLUME 95.1 fL (81.0-99.0); MEAN PLATELET VOLUME 9.1 fl (7.4-10.4); PLATELET 246 x1000/uL (130-400); RED BLOOD CELL COUNT 3.22 mill/uL (4.2-5.4); RED CELL DISTRIBUTION WIDTH 20.3 % (11.6-14.6)
[2018-11-04] MEDS: METHYLPREDNISOLONE SOD SUCC 40 MG/ML VIAL IV SCH ×2 (08:41→21:28)
[2018-11-04] MEDS: FUROSEMIDE 40MG/4ML VIAL IVP SCH (08:41)
[2018-11-04] MEDS: FERROUS SULFATE 300MG/5ML UDC GT SCH ×3 (08:41→17:37)
[2018-11-04] MEDS: AMLODIPINE 5MG TABLET GT SCH ×2 (08:42→21:28)
[2018-11-04 11:35] LABS: BG BASE EXCESS 3.8 mmol/L (-2.0-2.0); BG FRACTION INSPIRED OXYGEN 65; BG PCO2 36.2 mmHg (35.0-45.0); BG PO2 77.4 mmHg (75.0-100.0); BG SAMPLE SITE RIGHT RADIAL; BG TIDAL VOLUME(mL) 550 mL; BG VENT MODE VENT - A/C; BG VENT RATE 12 set
[2018-11-04 14:42] LABS: BG BASE EXCESS 5.7 mmol/L (-2.0-2.0); BG CARBOXYHEMOGLOBIN 0.6 % (0.5-1.5); BG DEOXYHEMOGLOBIN 6.8 % (0.0-5.0); BG FRACTION INSPIRED OXYGEN 60; BG HCO3 ACT 29.3 mmol/L (22.0-26.0); BG METHEMOGLOBIN 0.2 % (0.0-1.5); BG OXYGEN SATURATION 93.1 % (92.0-98.5); BG OXYHEMOGLOBIN 92.4 % (94.0-97.0); BG PCO2 38.7 mmHg (35.0-45.0); BG PH 7.497 (7.350-7.450); BG PO2 67.1 mmHg (75.0-100.0); BG SAMPLE SITE RIGHT RADIAL; BG TIDAL VOLUME(mL) 550 mL; BG TOTAL HEMOGLOBIN 10.8 g/dL (12.0-18.0); BG VENT MODE VENT - A/C; BG VENT RATE 12 set
[2018-11-04] MEDS: VANCOMYCIN HCL 1000 MG/20 ML ORAL PO SCH (17:42)
[2018-11-04 20:17] LABS: PLATELET ESTIMATE NORMAL
[2018-11-04] MEDS: ATORVASTATIN CALCIUM 20MG TABLET GT SCH (21:28)
[2018-11-05] VITALS (14 sets, daily range): BP systolic 122–158; BP diastolic 71–93
[2018-11-05] MEDS: IPRATROPIUM/ALBUTEROL 0.5-3(2.5)MG/3ML NEB INH SCH ×6 (00:15→20:00)
[2018-11-05] MEDS: INSULIN LISPRO 100 UNITS/ML SUBCUT SCH ×4 (00:41→18:10)
[2018-11-05] MEDS: VANCOMYCIN HCL 1000 MG/20 ML ORAL PO SCH ×4 (00:42→18:10)
[2018-11-05] MEDS: BLOOD SUGAR DIAGNOSTIC STRIP TEST SCH ×4 (00:42→18:05)
[2018-11-05] MEDS: SILDENAFIL CITRATE 20MG TABLET PO SCH ×3 (06:19→21:09)
[2018-11-05 06:49] LABS: HEMATOCRIT. 30.4 % (36.0-48.0); HEMOGLOBIN. 9.8 g/dL (12.0-16.0); MEAN CORPUSCULAR HEMOGLOBIN 29.9 pg (28.0-32.0); MEAN CORPUSCULAR VOLUME 93.1 fL (81.0-99.0); MEAN PLATELET VOLUME 9.4 fl (7.4-10.4); PLATELET 242 x1000/uL (130-400); RED BLOOD CELL COUNT 3.26 mill/uL (4.2-5.4); RED CELL DISTRIBUTION WIDTH 19.8 % (11.6-14.6)
[2018-11-05 07:41] LABS: BG BASE EXCESS 6.4 mmol/L (-2.0-2.0); BG FRACTION INSPIRED OXYGEN 60; BG HCO3 ACT 29.9 mmol/L (22.0-26.0); BG PH 7.503 (7.350-7.450); BG PO2 60.7 mmHg (75.0-100.0); BG SAMPLE SITE RIGHT RADIAL; BG TIDAL VOLUME(mL) 550 mL; BG VENT MODE VENT - A/C; BG VENT RATE 12 set
[2018-11-05] MEDS: METHYLPREDNISOLONE SOD SUCC 40 MG/ML VIAL IV SCH ×2 (08:23→21:09)
[2018-11-05] MEDS: FERROUS SULFATE 300MG/5ML UDC GT SCH ×3 (08:23→18:09)
[2018-11-05] MEDS: AMLODIPINE 5MG TABLET GT SCH ×2 (08:24→21:09)
[2018-11-05] MEDS ORDERED: FUROSEMIDE 20MG/2ML VIAL IVP SCH (09:00)
[2018-11-05] MEDS ORDERED: POTASSIUM CHLORIDE 20MEQ/PACKET PO SCH (11:30)
[2018-11-05 16:25] LABS: PLATELET ESTIMATE NORMAL
[2018-11-05] MEDS ORDERED: LORAZEPAM 2MG/ML CPJ IV NR (19:00)
[2018-11-05] MEDS: ATORVASTATIN CALCIUM 20MG TABLET GT SCH (21:09)
== END 2018-11-05 22:40 | DRG 870 ==
LOC: ER 18:46 → 5EST 21:30 → EDBEDREQ 21:35 → EDBEDREQTM 21:35 → ENRESERV 22:00
PROVIDERS: ADMIT Internal Medicine; ATTEND Internal Medicine
PROC: 5A1955Z Respiratory Ventilation, Greater than 96 Consecutive Hours (ICD-10-PCS; principal; 2018-10-14)
DX: A41.52 Sepsis due to Pseudomonas (principal); J15.1 Pneumonia due to Pseudomonas; J96.21 Acute and chronic respiratory failure with hypoxia; I69.354 Hemiplegia and hemiparesis following cerebral infarction affecting left non-dominant side; N39.0 Urinary tract infection, site not specified; G93.40 Encephalopathy, unspecified; J95.851 Ventilator associated pneumonia; Z99.11 Dependence on respirator [ventilator] status; J44.0 Chronic obstructive pulmonary disease with (acute) lower respiratory infection; N17.9 Acute kidney failure, unspecified; I50.42 Chronic combined systolic (congestive) and diastolic (congestive) heart failure; E46 Unspecified protein-calorie malnutrition; E11.9 Type 2 diabetes mellitus without complications; E78.5 Hyperlipidemia, unspecified; E78.00 Pure hypercholesterolemia, unspecified; F03.90 Unspecified dementia, unspecified severity, without behavioral disturbance, psychotic disturbance, mood disturbance, and anxiety; D50.9 Iron deficiency anemia, unspecified; I11.0 Hypertensive heart disease with heart failure; I25.10 Atherosclerotic heart disease of native coronary artery without angina pectoris; I27.20 Pulmonary hypertension, unspecified; K21.9 Gastro-esophageal reflux disease without esophagitis; M06.9 Rheumatoid arthritis, unspecified; R31.0 Gross hematuria; Z79.52 Long term (current) use of systemic steroids; Z79.82 Long term (current) use of aspirin; Z93.0 Tracheostomy status; Z93.1 Gastrostomy status; I69.321 Dysphasia following cerebral infarction; Z79.899 Other long term (current) drug therapy; Z88.6 Allergy status to analgesic agent; Z90.49 Acquired absence of other specified parts of digestive tract; Z68.36 Body mass index [BMI] 36.0-36.9, adult
CPT/HCPCS: 36415; 36600; 51702; 71045; 80048; 80200; 80202; 82375; 82805; 82962; 83540; 83550; 83605; 83735; 83880; 84100; 84145; 84484; 86850; 86900; 87070; 87077; 87186; 93005; 93306; 93970; 94002; 94003; 94640; 96365; 96366; 96375; 99291; A6261; C1893; J0713; J1650; J1720; J1815; J1940; J2060; J2270; J2405; J2543; J2920; J3260; J3370; J7030; J7040; J7042; J7050; J7060; J7512; J7620; Q0163; A4315